=== PATIENT | male | born 1950 | race Caucasian/White ===

== ENCOUNTER 2017-08-26 13:53 | Inpatient (IN) | payer OTHER ==
[2017-08-26 14:43] LABS: Absolute Lymphocytes (CBC) 2.2 K/uL (0.7-4.9); Absolute Monocytes 0.7 K/uL (0.1-1.3); Absolute Neutrophil 4.9 K/uL (1.8-8.0); Basophils % 0.5 % (0-1.3); Eosinophils % 1.9 % (0-4.4); Hematocrit 41.8 % (39.6-49.0); Lymphocytes % 27.9 % (15.3-44.8); MCH 30.5 pg (27.0-35.0); MCV 90.4 fL (80-100); MPV 7.7 fL (7.6-11.3); Monocytes % 8.6 % (3.3-12.3); RBC Red Blood Cell Count 4.63 M/uL (4.33-5.43)
[2017-08-26 14:57] LABS: Potassium 4.7 mEq/L (3.6-5.0)
[2017-08-26 15:00] LABS: Albumin 4.8 g/dL (3.2-5.5); Protein, Total 7.6 g/dL (6.0-8.3)
[2017-08-26 15:05] LABS: CKMB Creatine Kinase MB 3.8 ng/ml (0.3-4.0)
[2017-08-26 15:34] LABS: Thyroid Stimulating Hormone 2.08 uIU/mL (0.34-5.60)
--- NOTE | 2017-08-26 15:57 | ECHO ---
HEIGHT: ft in WEIGHT: lb oz DATE OF STUDY: 08/25/[address]: 2-DIMENSIONAL: YES M.MODE: YES DOPPLER: YES COLOR FLOW: YES TDS: NO PORTABLE: NO DEFINITY: NO BUBBLE STUDY: NO DIAGNOSIS: CHEST PAIN CARDIAC HISTORY: CATHERIZATION: YES SURGERY: NO PROSTHETIC VALVE: NO PACEMAKER: NO MEASUREMENTS (cm) DIASTOLIC (NORMALS) SYSTOLIC (NORMALS) IVSd 1.0 (0.6-1.2) LA Diam 3.2 (1.9-4.0) LVEF 65% LVIDd 3.6 (3.5-5.7) LVIDs 2.3 (2.0-3.5) %FS 35% LVPWd 1.2 (0.6-1.2) Ao Diam 2.9 (2.0-3.7) 2 DIMENSIONAL ASSESSMENT: RIGHT ATRIUM: NORMAL LEFT ATRIUM: NORMAL RIGHT VENTRICLE: NORMAL LEFT VENTRICLE: NORMAL TRICUSPID VALVE: NORMAL MITRAL VALVE: NORMAL PULMONIC VALVE: NORMAL AORTIC VALVE: NORMAL PERICARDIAL EFFUSION: NONE AORTIC ROOT: NORMAL LEFT VENTRICULAR WALL MOTION: NORMAL. DOPPLER/COLOR FLOW: TRACE MITRAL REGURGITATION. COMMENTS: NORMAL 2D ECHOCARDIOGRAM. TRACE MITRAL REGURGITATION TECHNOLOGIST: RADHA BENSON
[2017-08-26 16:08] VITALS: BMI 26.6
[2017-08-26 17:43] LABS: Urine Appearance CLEAR; Urine Bilirubin NEGATIVE (NEG); Urine Blood NEGATIVE (NEG); Urine Color YELLOW; Urine Glucose NEGATIVE (NEG); Urine Protein NEGATIVE (NEG); Urine Specific Gravity 1.025 (1.005-1.030); Urine Urobilinogen 0.2 mg/dL (0.2-1.0); Urine pH 5.5 (5.0-7.0)
[2017-08-26 18:04] LABS: Urine Bacteria <20 /HPF (NONE SEEN); Urine Culture Reflex Order NOT NEEDED; Urine RBC NONE SEEN /HPF (NONE SEEN)
--- NOTE | 2017-08-26 18:42 | RAD REPORT ---
EXAM DESCRIPTION: RAD - Chest Pa And Lat (2 Views) - 08/26/2017 5:45 pm CLINICAL HISTORY: Chest pain COMPARISON: November 2009 TECHNIQUE: PA and lateral views of the chest were obtained. FINDINGS: The lungs are clear. Heart size is normal and central vasculature is within normal limit s. No pleural effusion or pneumothorax seen. No acute bony finding noted. No aortic abnormality. IMPRESSION: No acute cardiopulmonary process. No significant change from comparison.
[2017-08-27] MEDS ORDERED: REGADENOSON 0.4 MG/5 ML SYR IV ONE (07:32)
--- NOTE | 2017-08-27 07:49 | HP ---
Date of Admission: 08/26/2017 Chief Complaint: Chest pain. History Of Present Illness: This is a 66-year-old male patient who was in his normal usual state of health until last 4 days or so. He started to have this vague symptom of describing as dull ache type of feeling in the center of his chest and also some feeling of either something in the throat with this chest discomfort, but not exactly able to describe it. No typical symptom of acid reflux, no trouble swallowing. No relieving factor, but the patient reported that when he plays golf or walks too fast, this chest discomfort that he has tends to get worse. No associated sweating, nausea, vomiting. No fever. No expectoration. After he was evaluated at the office, decision was made to admit him to the hospital with this problem of chest pain. Allergies: TO HYDROCODONE. Medications: Aspirin 81 mg p.o. daily, simvastatin 10 mg daily, losartan 50 mg p.o. daily, amlodipine 5 mg p.o. twice a day. Review of Systems: Cardiovascular: As mentioned above. All other systems reviewed and negative. Social History: Negative for smoking and alcohol use. Family History: Significant for father had coronary artery disease at age 48. Sister with breast cancer. Another sister with cancer of tongue. Past Surgical History: Significant for removal of basal cell carcinoma, cataract surgery, tonsillectomy, hernia repair. Past Medical History: Significant for hypertension, hyperlipidemia, benign prostatic hypertrophy, impaired fasting glucose. Physical Examination: Vital Signs: When the patient came to office, height 67 inches, weight 177 pounds, blood pressure 120/77, pulse 65, respiratory rate 15, temperature 98.4. General: Awake, alert, oriented, not in distress. HEENT: Head atraumatic, normocephalic. Conjunctivae nonerythematous. Sclerae white. Mouth, no thrush or edema noted. Ears/Nose, no mass, lesion, discharge noted. Neck: Supple. No JVD, lymph nodes, bruit, thyromegaly noted. Lungs: Bilateral good equal air entry. Clear to auscultation. No rhonchi. No rales. Heart: Normal heart sounds, no murmur or gallop. Abdomen: Soft, bowel sounds normal. No guarding, rigidity, tenderness, mass, hepatosplenomegaly, distention, or bruit noted. Extremities: No leg edema. No calf tenderness. Skin: No rash, ulcer, cellulitis. Lymphatics: No lymph node enlargement in neck, supraclavicular, infraclavicular region. Neuro: No focal neurological deficit. Chest: Unremarkable. External Genitalia: Deferred. Rectal: Deferred. Laboratory Data: EKG: Normal sinus rhythm, no acute ST-T wave changes. White count 8, hemoglobin 14.1, platelets 270. Sodium 141, potassium 4.7, chloride 107, bicarb 27, BUN 17, creatinine 1, glucose 96. Liver function tests unremarkable. Troponin less than 0.03. TSH 2.08. Urinalysis negative. Chest x-ray: No acute cardiopulmonary changes noted. Echocardiogram showed ejection fraction 65%, trace mitral regurgitation, otherwise this was a normal echocardiogram. Impression: 1. Chest pain. 2. Hypertension. 3. Hyperlipidemia. 4. Impaired fasting glucose. 5. Benign prostatic hypertrophy. Plan: Admit the patient to hospital to telemetry. The patient is appropriate for observation. We will consult Cardiology. We will repeat cardiac enzymes per order. Continue home medications per order and we will do a Lexiscan stress test tomorrow morning, and once that test comes back negative, then our plan is to discharge him to go home. Details and plan of treatment discussed with the patient. GWEN Voice ID: [id number] MTDD
--- NOTE | 2017-08-27 08:23 | EKG ---
Test Date: 2017-08-27 Test Time: 06:31:59 Hospital Supervisor: RT Davenport MEASUREMENT RESULTS: Intervals: Rate: 60 AK: 200 QRSD: 92 QT: 420 QTc: 420 [place]: P: 60 AK: 200 QRS: 66 T: 51 INTERPRETIVE STATEMENTS: Normal sinus rhythm Normal ECG Compared to ECG 11/28/2009 07:42:32 Early repolarization no longer present Electronically Signed On 08-27-17 08:23:25 CDT by Fuentes Eid
[2017-08-27] MEDS: Losartan Potassium 50 MG TABLET PO SCH (09:00)
--- NOTE | 2017-08-27 10:26 | RAD REPORT ---
EXAM DESCRIPTION: NM - Rest Stress Cardiac Imaging - 08/27/2017 10:18 am CLINICAL HISTORY: Chest pain COMPARISON: None. TECHNIQUE: The patient was administered approximately 10 mCi of Tc 99m Sestamibi prior to resting SP ECT imaging of the heart. The patient was then administered approximately 30 mCi of Tc 99m Sestamibi following exercise or pharmacologic stress. Multiplanar SPECT images were reviewed. FINDINGS: The end diastolic volume is 97 ml, the end systolic volume is 40 ml, and the ejection frac tion is 59 %. Small focus of decreased activity is seen in the anteroseptal wall mid and apex portion on stress seq uencing. This is absent or less prominent than on rest imaging. No other area of scarring or stress ischemia identifiable. IMPRESSION: Suspected small focus of stress ischemia anteroseptal wall. Ventricular volume and ejection fraction are normal range.
--- NOTE | 2017-08-27 13:05 | TREADPHA ---
DX: CHEST PAIN Date of Study: 08/27/17 Ht: 5 7 Wt: 170 lb 0 oz Consulting Physician: VÍCTOR MEDICATIONS: AMLODIPINE, LOSARTAN, SIMVISTATIN, ASPRIRIN, CIALIS HISTORY: 66 YEAR OLD MALE WITH COMPLAINTS OF CHEST PAIN. HISTORY OF HYPERTENSION, HIGH CHOLESTEROL PHYSICIAL EXAMINATION: RESTING B.P.: 137/76 RESTING H.R.: 68 RESTING EKG: NORMAL PROTOCOL: 3:30 EXERCISE TIME: 3:30 B.P. AT PEAK STRESS: 136/75 IMPRESSION: LEXISCAN INJECTED, CARDIOLITE INJECTED PER PROTOCOL, SEE NUCLEAR MEDICINE REPORT. NO CHEST PAIN. OCCASIONAL PREMATURE VENTRICULAR COMPLEXES NOTED THROUGHOUT THE TEST. NO VENTRICULAR TACHYCARDIA, NO SUPRA VENTRICULAR TACHYCARDIA. NON DIAGNOSTIC EKG WITH LEXISCAN STRESS.
--- NOTE | 2017-08-28 02:11 | CON ---
Date of Consultation: 08/27/[address] Mccrary's service on 08/26/2017. I saw the patient on 08/27/2017. Reason For Consultation: Chest pain. History Of Present Illness: Mr. Kaiser is a 66-year-old white male who has a history of hypertension and dyslipidemia. He takes medications for both of these conditions. No cardiac history. He came i n with chest pain while he was playing golf, that was persistent for a few hours, but gets worse when he exerts himself. No nausea, vomiting, diaphoresis, PND, orthopnea, pedal edema, palpitations, or syncope. He had a negative chest x-ray, EKG, troponin, and BNP. Echocardiogram and Lexiscan were pe nding. Past Medical History: Negative. Allergies: NONE. Review of Systems: Negative. Social History: Negative for tobacco. Family History: Positive for heart disease in his dad. Physical Examination: Vital Signs: Stable. He is afebrile. HEENT: Negative. Neck: Supple without any bruit, lymphadenopathy, JVD, or thyromegaly. Chest: Clear to auscultation and percussion. Cardiac: Revealed a regular rhythm and rate, without any murmurs, gallops, or rubs. Abdomen: Benign. Extremities: Revealed no clubbing, cyanosis, or edema. Diagnostic Data: Unremarkable. Impression And Plan: The patient who is 66, has hypertension and dyslipidemia. He is on simvastatin , losartan, amlodipine, and aspirin. Blood pressure is well controlled. We will see what the echoca rdiogram and Cardiolite show, but his symptoms are suspicious for acute coronary syndrome. The case was discussed with Dr. Mccrary. I will make a decision after the stress test and echocardiogram are nadeem BLAIR/EVIE Voice ID: [id number] Report ID: [id number]
--- NOTE | 2017-08-28 02:17 | PN ---
Date of Progress Note: 08/27/2017 Subjective: The patient was seen this morning for followup. Denied any complaints overnight. Vital signs reviewed. Objective: HEENT: Unremarkable. Lungs: Clear to auscultation. Heart: Sounds normal. Abdomen: Soft. Bowel sounds normal. No guarding, rigidity, tenderness, or distention. Extremities: No leg edema. Laboratory Data: The patient's stress test today shows reversible perfusion defect in anteroseptal p art. Impression: 1.Chest pain. 2.Abnormal stress test. 3.Hypertension. 4.Hyperlipidemia. Plan: Stress test result was available. [employer] recommended cardiac cath and initially the pat ient was reluctant to get this procedure done at our hospital, and later on he was agreeable to do so . Dr. Eid has seen him, explained him details, and I have discussed details with Dr. Eid as well. This evening, I went back to hospital to talk to the patient per his request and we talked abo ut different possible scenario that we can identify tomorrow with a cardiac cath. One is that stress test could be false positive and he does not have any coronary artery disease, other option is that he may have some coronary artery disease and just a medical management would be necessary, third opti on is need for angioplasty and stent placement, and last option is need for bypass surgery, and in th at event, we will be able to arrange for him to go to [place]. All those details were discussed with him. He understands and agrees to proceed with cardiac cath locally at our hospital. He feels very comfortable with Dr. Eid after he talked to him as well. I will see him tomorrow morning for followup. We will go ahead and get a fasting lipid profile done on him. He is asymptomatic otherwise today. AMELIA/MODL Voice ID: [id number] Report ID: [id number]
[2017-08-28] MEDS ORDERED: NA CHLORIDE 0.9% 1,000 ML ONE (05:47)
[2017-08-28] MEDS: Losartan Potassium 50 MG TABLET PO SCH (06:00)
[2017-08-28] MEDS ORDERED: MIDAZOLAM HCL 2 MG/2 ML INJ ONE ×2 (09:05→09:09)
[2017-08-28] MEDS ORDERED: FENTANYL CITR 100 MCG/2 ML ONE (09:05)
[2017-08-28] MEDS ORDERED: NA CHLORIDE 0.9% 0 ML ONE (09:09)
[2017-08-28] MEDS ORDERED: LIDOCAINE 1% 20 ML MDV ONE (09:09)
[2017-08-28] MEDS ORDERED: ATROPINE SULF 1 MG/10 ML SYR IV ONE (09:09)
[2017-08-28] MEDS ORDERED: ONDANSETRON 4 MG/2 ML VIAL ONE (09:26)
[2017-08-28 10:28] VITALS: O2SAT 100
[2017-08-28] MEDS ORDERED: NITROGLYCERIN 0.4 MG/TAB SL PRN (12:00)
[2017-08-28] MEDS ORDERED: ACETAMINOPHEN 325 MG TABLET PO PRN (12:00)
[2017-08-28] MEDS ORDERED: NA CHLORIDE 0.9% 1,000 ML IV SCH (12:00)
[2017-08-28] MEDS ORDERED: HEPARIN 1000 UNIT/500 ML IV ONE (13:14)
[2017-08-28 13:24] VITALS: BP 145/69; TEMP 98.2
--- NOTE | 2017-08-29 00:24 | DS ---
Date of Discharge: 08/28/[address]: [facility] via ground ambulance. Physical Examination: HEENT: Unremarkable. Lungs: Clear to auscultation. Heart: Sounds normal. Abdomen: Soft. Bowel sounds normal. No guarding, rigidity, tenderness, or distention. Extremities: No leg edema. Hospital Course: A 66-year-old male patient came into office with complaints of some vague chest marlen n. Please see dictated H and P for more information. The patient came into office with some unusual sensation describing as dull ache type of feeling in the center of his chest area. The patient repo rted that the symptoms gets worse if he is playing golf or tries to walk fast. EKG was done at offic e which was normal and with his symptoms I was concerned about possibility of coronary artery disease . The patient was sent to the hospital for further evaluation and management. After the patient was admitted to the hospital, his home medications were continued. Cardiology consultation was obtained . [place] was ruled out by getting serial cardiac enzymes. His repeat EKG in the hospital was normal as well. Echocardiogram came back unremarkable. His chest x-ray was unremarkable. The patient had a s tress test done yesterday which showed abnormality with anteroseptal ischemic changes and cardiac cat h was recommended and the patient had a cardiac cath done today with Dr. Eid and after the cath, Dr. Eid contacted me and informed me that the patient had significant coronary artery disease and he has recommended coronary artery bypass surgery, and he already has initiated transfer process to [place] and he has already communicated with Dr. Goldberg and once that is completed, the patient was transferred in stable condition. His blood work chemistry was unremarkable. TSH normal at 2.08. His LDL was 75, HDL 44, total cholesterol 133, triglyceride 71. CBC was unremarkable. Troponin le ss than 0.03 x2. Final Diagnoses: 1.Angina. 2.Coronary artery disease. 3.Hypertension. 4.Hyperlipidemia. 5.Impaired fasting glucose. 6.Benign prostatic hypertrophy. AMELIA/MODL Voice ID: [id number] Report ID: [id number]
--- NOTE | 2017-08-29 22:07 | OP ---
Surgeon: Fuentes Eid MD Procedure: Left heart catheterization, selective coronary arteriogram. Indication: Chest pain and positive Cardiolite. Procedure In Detail: The patient was brought to the [facility] as an inpatient. He was prepped and dr chente in the routine sterile fashion. Given 4 mg of Versed for IV sedation. A 6-Libyan sheath introd uced in the common femoral artery on the right. [employer] was used to close the case. Eitan ranjeet ters 6-Libyan left and right were used to do the angiography. He had a nondominant small free of disease. His left main had a 70% stenosis. He had a 90% LAD stenosis before the first diago nal. Large diagonal had a 90% OM lesion. Complications: There were no complications. Blood: Loss 5 cc. Conscious Sedation: 30 minutes. Final Diagnosis: Severe coronary artery disease. Plan: To send him to the [facility] for coronary artery bypass surgery. Case was discussed with the family. JOHNNIE/VEIE Voice ID: [id number] Report ID: [id number]
== END 2017-08-28 16:51 | disposition short-term general hospital (02) | DRG 287 ==
LOC: 4TH 14:03 → OBSVTOIN 08-27 14:27
PROVIDERS: ADMIT Internal Medicine; ATTEND Internal Medicine
PROC: 4A023N7 Measurement of Cardiac Sampling and Pressure, Left Heart, Percutaneous Approach (ICD-10-PCS; principal; 2017-08-28)
PROC: B201YZZ Plain Radiography of Multiple Coronary Arteries using Other Contrast (ICD-10-PCS; 2017-08-28)
PROC: B205YZZ Plain Radiography of Left Heart using Other Contrast (ICD-10-PCS; 2017-08-28)
DX: I25.119 Atherosclerotic heart disease of native coronary artery with unspecified angina pectoris (principal); I10 Essential (primary) hypertension; E78.5 Hyperlipidemia, unspecified; R73.02 Impaired glucose tolerance (oral); N40.0 Benign prostatic hyperplasia without lower urinary tract symptoms
CPT/HCPCS: 36415; 71046; 78452; 80053; 80061; 81001; 82550; 82553; 83735; 84443; 84484; 85025; 93005; 93017; 93306; 93458; A9500; C1893; G0378; J0583; J2250; J2405; J2785; J3010; J7030

== ENCOUNTER 2020-10-17 08:08 | Emergency (ER) | payer OTHER ==
--- OUTSIDE RECORDS SUMMARY | 2020-10-17 08:13 | XMS REPORT | Continuity of Care Document ---
:1950 Author Organization [facility] t Address [address] [place] [address] Care Team Providers Name Role Phone DEANNE SANTOS Primary Care Physician Unavailable Castro GALINDO I Attending Clinician Pio Blackman MD Attending Clinician Gume Prince MD Attending Clinician Alex GALINDO Attending Clinician Mane ORELLANA Attending Clinician Unavailable Gala ORELLANA, S Attending Clinician Unavailable Gume Alvarez Attending Clinician Jorge GALINDO Attending Clinician Jordan MAZA Attending Clinician Greg Duran MD Attending Clinician Nato GALINDO Attending Clinician Renetta Hansen MD Attending Clinician Unavailable Neil ORELLANA, Karin Attending Clinician Unavailable Leslie ORELLANA Attending Clinician Unavailable Deanne Santos MD Attending Clinician [phone] Lety ORELLANA, A Attending Clinician Payers Payer Name Policy Type Policy Effective Date Expiration Date Sour ce Number MEDICAREMEDICARE PART [id number] 2015 MD Tian A AND 00:00:00 [id number] 2015- [phone] THO ANDERSENMediselect [facility] AETNA MANAGED [id number] MD Tian CAREAETNA 00:00:00 [id number] 2000 -PresentHMO COVID VACCINE ADMIN / [id number] 2020-05-[address] [facility] TESTINGCOVID VACCINE 00:00:00 - Me dical ADMIN / Center [id number]/06 021-Present Problems Condition Condition Condition Status Onset Resolution Last Treating Co mments Source Name Details Category Date Date Treatment Clinician Date Malignant Malignant Disease Active Overview: melanoma melanoma 5-05 Formattin And erso of left of left 00:00: g of this n upper limb upper limb 00 note including including might be shoulder shoulder different from the original. Added automatic ally from request for surgery [id number] Cancer of Cancer of Disease Active 2018-04 Overview: left male left male 2-16 Formattin A nderso breast breast 00:00: g of this n 00 note might be different from the original. Mandatory CMS ICD-10 2020 UPDATE [place] Disease Active 2018-04 left left 2-04 Anderso breast breast 00:00: n 00 Renal Renal Disease Active [place] insufficie insufficie 5-15 Me thodi ncy, mild ncy, mild 00:00: st 00 S/P CABG x S/P CABG x Disease Active [place] 2 2 5-15 Methodi 00:00: st 00 Nausea Nausea Disease Active [place] 5-15 Methodi 00:00: st 00 Postoperat Postoperat Disease Active [place] afsaneh anemia afsaneh anemia 5-15 Me thodi due to due to 00:00: st acute acute 00 blood loss blood loss Essential Essential Disease Active [facility]izabeth ston hypertensi hypertensi 5-15 Me thodi on on 00:00: st 00 Coronary Coronary Disease Active [place] artery artery 5-14 Methodi disease of disease of 00:00: st bypass bypass 00 graft of graft of qagan tayagungin qagan tayagungin heart 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 Allergies, Adverse Reactions, Alerts Allergy Allergy Status Severity Reaction(s) Onset Inactive Treating Comm ents Source Name Type Date Date Clinician Fentanyl Propensi Active Other (See Nausea, [place] ty to Comments) 5-15 GI Methodi adverse 00:00: intoleran st reaction 00 ce s to drug Tramadol Propensi Active GI nausea [place] ty to Intolerance 15 Metho di adverse 00:00: st reaction 00 s to drug Hydrocod Propensi Active Diarrhea, GI [place] one ty to Intolerance 5-11 Metho di adverse 00:00: st reaction 00 s to drug Morphine Propensi Active Diarrhea, GI Pt stat es [place] ty to Intolerance 5-11 he cannot Me thodi adverse 00:00: tolerate st reaction 00 narcotics s to and has drug severe GI upset for >24 hours Family History Family Member Diagnosis Comments Start Date Stop Date Source Natural brother Melanoma MD Yaoers on Natural sister Breast cancer MD Juan godinez Natural sister Tongue cancer MD Juan godinez Social History Social Habit Start Date Stop Date Quantity Comments Source Exposure to Not sure MD Tian SARS-CoV-2 (event) Tobacco use and 2017-09-02 2017-09-02 Never used [facility] ethodist exposure 00:00:00 00:00:00 Alcohol intake 2017-09-02 2017-09-02 Current [facility] thodist 00:00:00 00:00:00 non-drinker of alcohol (finding) Sex [birth year] [facility] ethodist 00:00:00 00:00:00 Smoking Status Start Date Stop Date Source Never smoker [facility] Medications Ordered Filled Start Stop Current Ordering Indication Dosage Frequency Signature Comments Components Source Medication Medication Date Date Medication? Clinician (SIG) Name Name vit A/vit Yes Take by C/vit 3-16 mouth Anderso E/zinc/lynette 16:21: daily. n er 59 (PRESERVISI ON AREDS ORAL) tamoxifen Yes Infiltratin 20mg Take 1 MD (NOLVADEX) 1-30 g duct tablet (20 A nderso 20 mg 00:00: carcinoma mg) by n tablet 00 of axillary mouth tail of daily. left male breast sulfamethox Yes Infection 1{tbl} Take 1 MD azole-trime 5-25 following a tablet by Anderso thoprim 00:00: procedure, mouth n (Bactrim 00 other twice DS) 800 surgical daily. mg-160 mg site, per tablet initial encounter tamoxifen No Infiltratin 20mg Take 1 MD (NOLVADEX) 2-25 01-30 g duct tablet (20 Anderso 20 mg 00:00: 00:00 carcinoma mg) by n tablet 00 :00 of axillary mouth tail of daily. left male breast amLODIPine Yes MD (NORVASC) 5 7-15 Anderso mg tablet 00:00: n 00 tadalafil Yes MD (CIALIS) 20 3-15 Anderso mg tablet 00:00: n 00 simvastatin Yes 10mg QD Take 10 mg [place] (ZOCOR) 10 5-18 by mouth Metho di MG tablet 09:26: nightly. st 29 aspirin Yes 81mg QD Take 81 mg [place] (ECOTRIN) 5-18 by mouth Method i 81 MG 09:26: daily. st enteric 29 coated tablet aspirin 81 Yes 81mg Take 81 mg M D mg EC 5-15 by mouth. Anderso tablet 00:00: n 00 metoprolol Yes MD succinate 5-15 Anderso (TOPROL XL) 00:00: n 25 mg 24 hr 00 tablet simvastatin Yes MD (ZOCOR) 20 5-15 Anderso mg tablet 00:00: n 00 Immunizations Ordered Immunization Filled Immunization Date Status Commen ts Source Name Name Covid-19 Vaccine 2020-05-[address] [facility]Pf) 00:00:00 [facility] ([place]) Covid-19 Vaccine 2020-05-[address] [facility] (Pf) 00:00:00 [facility] ([place]) Vital Signs Vital Name Observation Time Observation Value Comments Source Systolic blood pressure 2020-09-18 16:27:41 118 mm[Hg] MD Tian Diastolic blood pressure 2020-09-18 16:27:41 76 mm[Hg] MD Tian Heart rate 2020-09-18 16:27:41 67 /min MD Dannie son Body temperature 2020-09-18 16:27:41 36.78 Louise MD Edwige tomlinson Respiratory rate 2020-09-18 16:27:41 18 /min MD Edwige tomlinson Oxygen saturation in 2020-07-03 21:11:10 99 /min MD Tian Arterial blood by Pulse oximetry Body weight 2020-06-15 14:25:22 80.8 kg MD Dannie sanchez BMI 2020-06-15 14:25:22 27.47 kg/m2 MD Dannie sanchez Procedures Procedure Date / Time Performed Performing Clinician [facility] e PATHOLOGY OUTSIDE 2020-06-15 00:00:00 Kristin Prince MD INTERPRETATION XR CHEST 2 VW 2020-03-20 17:19:52 Morro Donovan MD COMPREHENSIVE METABOLIC PANEL 2019-11-29 14:15:00 Josselin Patel MD GLUCOSE LEVEL 2019-11-29 14:15:00 Josselin Patel MD ELECTROLYTE PANEL 2019-11-29 14:15:00 Josselin Patel MD SERUM CREATININE 2019-11-29 14:15:00 Josselin Patel MD .GLOMERULAR FILTRATION RATE 2019-11-29 14:15:00 Josselin Patel MD CALCIUM LEVEL TOTAL 2019-11-29 14:15:00 Josselin Patel MD ALBUMIN LEVEL 2019-11-29 14:15:00 Josselin Patel MD ALKALINE PHOSPHATASE 2019-11-29 14:15:00 Josselin Patel MD ALANINE AMINOTRANSFERASE 2019-11-29 14:15:00 Josselin Patel MD ASPARTATE AMINOTRANSFERASE 2019-11-29 14:15:00 Josselin Patel TOTAL PROTEIN 2019-11-29 14:15:00 Josselin Patel MD FRACTIONATED BILIRUBIN 2019-11-29 14:15:00 Josselin Patel MD BLOOD UREA NITROGEN 2019-11-29 14:15:00 Josselin Patel MD Plan of Care Planned Activity Planned Date Details Comments Source Future Scheduled 2020-12-[address] [facility] - Test 00:00:00 (Season Ended) [code = [facility] INFLUENZA VACCINE (Season Ended)] Future Scheduled 2020-11-18 INFLUENZA VACCINE [place] [facility] 00:00:00 [code = INFLUENZA VACCINE] Future Scheduled 2020-04-[address] [facility] - Test 00:00:00 (12+) [code = Medical Center DEPRESSION SCREENING (12+)] Future Scheduled 2015-09-02 PNEUMOCOCCAL 65+ YRS [facility] - Test 00:00:00 (1 of 1 - Medical Center [id number] PCV13) [code = PNEUMOCOCCAL 65+ YRS (1 of 1 - [id number] PCV13)] Future Scheduled 2015-09-02 65+ PNEUMOCOCCAL [place] [facility] Test 00:00:00 VACCINE (1 of 1 - PPSV23) [code = 65+ PNEUMOCOCCAL VACCINE (1 of 1 - PPSV23)] Future Scheduled 2000 SHINGLES VACCINES ([address] [facility] - Test 00:00:00 of 2) [code = SHINGLES Medic al Center VACCINES (1 of 2)] Future Scheduled 2000 COLONOSCOPY SCREENING [place] [facility] Test 00:00:00 [code = COLONOSCOPY SCREENING] Future Scheduled 2000 SHINGLES VACCINES (#1) [place] [facility] Test 00:00:00 [code = SHINGLES VACCINES (#1)] Future Scheduled 1969 DTAP/TDAP/TD [facility]ACCINES [facility] Test 00:00:00 (1 - Tdap) [code = Medical C enter DTAP/TDAP/TD VACCINES (1 - Tdap)] Future Scheduled 1968 HEPATITIS C SCREENING [facility] Test 00:00:00 [code = HEPATITIS C Medical Center SCREENING] Future Scheduled 1962 COVID-19 VACCINE (1) [place] [facility] Test 00:00:00 [code = COVID-19 VACCINE (1)] Future Scheduled [address] [facility] Test 00:00:00 malignant neoplasm of [facility] colon (procedure) [code = 646526060] Encounters Start End Encounter Admission Attending Care Care Encounter Source Date/Time Date/Time Type Type Clinicians Facility Department ID 2019-06-29 Outpatient [facility] MARGOT [id number] [facility] 16:35:47 2019-05-14 2019-05-14 Emergency E [facility] FB [id number] [facility] 09:11:00 09:11:00 2019-05-12 2019-05-12 Outpatient [facility] MARGOT [id number] [facility] 08:17:00 08:17:00 2019-04-21 2019-04-21 Outpatient [facility] MARGOT [id number] [facility] 08:38:00 08:38:00 Results Test Description Test Time Test Comments Results Result Comments Source Pathology Outside Interpretation 2020-07-06 21:52:00 Test Item Value Reference Range Interpretation Comme nts Materials h7mypIZbTREejRMcYyVvXYWmODFbq3iuVMBvjNMwUwQrArSyOyJsNjpibVGqOSInAyMpt9mhp267tZYm m6bqJLThLrP2aIHtKJMrjRXwF626LREoVVhtr4nop8AkNFSnaHSxp5X2ODBXpgpxbWf2eOjiZ34xz0M9 AivsI0fzIFRlNQRoZ7HoXU8jSACeYvp5TMJ6MEB2ATS Received qRNGmT7FaJF1eXFChcQBmYCb8u2qaeGujZTOvBNH3y3ygJClgbcKeWA3bwy6ulMh7b9bvcyTqHHYnVOF nkINFTJSeE2OpzNqrIx1hrQz4aYppNbpsQAF0Hsh1WA1fan84mxt5jEnkJZIfmlkpTnJ2CIdfSYIskdp fSBc4MVsfVQHluGpgDFhzTCFlkrfmGXvrGBBprNY1VP (test code RcbWJzY5QeOAMxRCzpDYRuery3AvEpTj1kuEJsqRqeQNvun7lhw0ajqDQvUki1TJFoYnDyPdnjFWusd5 Ars7fcFTJxzj6tNPF3oTEqfGiwg4N3sQNsGEByzVEecuJvCYCrvp47lKMjjOTtePEejt2thlAvvDAugV LxSMX4sYVatqPiDMOrrWGkTXAcXN1dbGJwWSOkuC7wd = 9973) dtwQMUmJwZpmfanFTQrfNpipvBtFu4mcHgeORL6ZYcnW4wfcI6aNiO4QNrsE4kmuD1lLXx0ZDerqEO4Q XYxwE3kSZ1lyqgfs7tiXzOtSK8rapejn2cmEuPdBV8puhx1p6rkVRF7BMjyRLMiTpR1ndP5QJYvoLQsF VHbmBvwMEdiu477HDU7LjUaVMYpo5OkY0NujPrzI78d iYnsK03vWXDafUxiuP6gtCciuP8nFnWjJtJjMIy8mf01UFj2iarvdVliBXa7ivZgJPGwVIY4XWEtmGAt LABvV6x5jjMySXVqIRV2CTMzwIWcKRKcV9c9ziGcYKH6CRh1bbPtWPUljWKufGSlAKPaGxCplAZrLZCo HlRxYNVglNWdxPJiwFXgdU7kdFbzWXOrpELjvP8lGSE 3OBJcflckCsFsvQRnGAUhzPSabd04CTBczjOgxRCwiMiouKYvRXR3CQMuWFVoAHBvNJW1UXNeAtTkbzX zSHovtTDyQAHyRTLhSAJbBPCdKXF7QLRzFmXozrGrPOunuJUeNITwIVXmJVDbARKxLAO5CXXuNjAnmnD nARewqRHlSMFkGLSeENGkHKHzRYI3HXSjVqEecdNvLO ywdNBiHEQzHGrupVJeUBU4L5xllCShOXGuJAscdKNpYTEdV0jcvIOqXIgxGKJntMVsApbgRYEftTPoXm FjT7ohTXGhYeNiF1YknHc3AWNuSTNmoaJdsIYxbIhujCJiVPX4JAEjIMFfJVMvXFE3MGKcQbLpdmXaNR whoNUxPYIsEMJnTVEcNJPsGWO8PIVhCdTkpaOnXJtbu LMtANQnOGUkVWEvJVXrDWY1DAXyFpRgqoKvQVbdtLAtLILoEKAdMQHwRWNiPBJ9RFMaNiRcfzSkYGvbp UOoXGTfHZywfGVgLWE0L6xkcQShXZYiRErsyMEfZHIjR0btaHWeDKerGMYxbHGbJtpjQUWkoDBoBpXdB 7lhKYDmTiWgI3WyxDj2TlZxGGLssjAktEQzgYdsdHWp YAJ4FUUzVIUnBXBxHRD6NSAgJrSlanWgAUrdiAWjQQOoMLQkTKLfOMLqMKG2MBFvBuMudrFmFQomcDCf HMUpEOQwSLDhCGRqHDF8KXBqYiYjhjBaXOwyjIWyFGZqZNUuEYCpVOIpEUE7PBAcAyElasYvRAdlcVIs EFAsPNbtwQGkJGF5O1vmgYEvBBRbSSoslANrYYXaQ1w kfPMdDAamCIRyiUVqWobpYUThuOYfSeEdV8dtAKPxGqIlG4WxtLx8BvLvSMGdjrHueW64Mwbpw7UuCTS zMCF7IOcpLYayqDphrMZuaybyQVtihsGdPZxhysnnDWCmDSqzZ1psYmWwDEAgqJeiLMdwb3KmJGHoEWJ jEglpyaUeCUKgOQHiYOQtnZ8sTmikG9ElhT4lDQxbFu vlJ4lnHAWpj2PdxD3jFXlqlXTpgsmdTPjsctGaCMvfwzmjFTDuRYxjB0geOoKbAXAewZhaEJsax0FvIL DsFDYnJbxuazPsWSq7fwNsESFbvNidkOJkYFvuunDebHzxz1FslfBpjYbmKQRsXAd4xcQgtnvqpJf5uP PoyDsgLORabHoleB3gEaWlFqCyYKtvySTlrmswREdae aZmIDzzijboWHXfDEetF8ixLlSgCFHzjSahFOlbx0MvHIBhORIsRlewigVqIPIaQ66krCVjbOQpGGBqM UhlDMLrOAOzLlGjaCArZdVwEjYehZdghVogMIomQeSmFKRhMUywK1wxPjIaW6AgKCXuStGazBNxD9tgR 8CyjHrgRWRkCFadvBMlHMJspJRkHWC1oTGveuXzhWWt qSByOFHoUWxoUAW0aOVeqjdumBMflfvxDZrfizE2XHVgBYflTFAjBVUjDwWniXSoHrGqUjEdmEztoBkg OJkbLoKlRCZyTSkbO0ykZlWbL1MnROFbWcUxIdPPHQUduQLzFPhqhLSzlnosXSrpwcCwPWchlgopDBUg UHsyD7toTbHcZDTmiWooEKdpx5PyYHGfJABiStqwywE aUMd6kuFkOXRvaIiauY09Ihtsdj43ERWyf6bnOPVuF6LxrPVoOFCvrFJeZYanIVllxDVfGMNxKxorSMR wfTSyFVPcADlswGZwKTUwJsXzNYUvlZRsWCXbVSHohHOwTUQ6R6p9lvYdTGUvCRe6pxMqWYWpLyJrtKU zRKQ6MWq7OwhuxnF2wWQpC7y3HlnkqpWnGMjeuKBceh 66ADFzglUozOOydQsjeTJnQVB1LOHpFVUqOWDzCBR5VWQpZhVyknFuLHassWLqISIwRDTeJKQjZTMeQT Q1TYTjMjXhnrPkAYusaRUtBSLgRCXaLNHxVGKkSYA2HOLsOzUaciGzIQwzjGHnUPNuVCHvUMDqMQSbJH K8ZAIcGoUfnpReNNqyxNQtMANvYYaquNRmWAS4O9gjq APgLONpPCernTQyVNOaF9jtnYUdOOubBZXdtGXlRqnoPELayEYbKdRmG9cfIULwCkAbG7ShwBt0VMMyM FAxbcVaoOLmqHrnbFQnKSB2FGRqUAXcZXRrLDY1RCLqHxVouaVkDBssdTWxPSEkSEPtNBHtTZPvTTQ4L PCkLlKeaeFiJSjymIHsCXBwPNGgXFPxLAKaFPD1LQEa KcJykbVpCPwzhNUlNPZrJPVkYUPbDQSbOXL1KAGlPeBdnkAuGKouvYJeLTTfRSdxsLLnMZY1E5eptPMe KMKeEDfonOVzJSNyB0iceWRwPAbaGEOvoOUbXxbeXZCzbEPwYmKeT1lhLAQlYoNiZ5EnfGq7NbOlGRIx tiYduFHhwYhvyRDtEPA4ZZKaXXWvMNFzVDK7PXGxObQ tfoQdEXuajPKqRVUaAVEgCJXgCNQiKIE9XWQyGjChfgJbYJmsoBZhZKAkSFRfBCHsLFWqXUH0SRMwJrB xtfEnKDpyvKDtQQBlHRAgQHLjEXAoDJQ0SASvJuFyesMrOWmjyFQvYDSwPWxnxOCgVPZ4H6mycDFjOMM mVLnzjXOkTMHiW4jfzSRqJErnCJKbyMSyKlgqUSJniS XxPhRqB7zxOHWkHjKuD7BivYo4FmZhBWJgkdEzfU43Twbbl1SaJXMhANP6HNmwVLcbmHyjrEDzdabmNM nitoQ3MXNuVEvqOEChUHKcKrDdoDHxRmOzLdLwzMxhvFidCIymUnJpRAZvUBsrT2nmSiEkH0VaXKQzXb OwIQ4hHwJLTfQvFAB5FwJwGODzZ8MkLGYuBgzZQ3iWZ OEoBXARV9lrkSFhaozjPAaqmgLwTZudipkeBHHjBGggB2qcXhTzRJBogMjsFWmfk6QtGIPrWADtOkgih nThHQh9fhFxHBUilNzzmPSaWYspftIlgEdxx6QxnuIftWceHPKyCCVrJGPsRBobMFSnXLJcHiCkwJwnf A0pIoPgBaEfHZbfRH8bTDSpT0heiXDvNXNcCPFrB6sn AbMmtI0rmUzvKXztNyHwKeYgQWQbBeE1EcVjCwUqrVlwdR5xSzNxJkRxSEgsRH8hXYWfC3oomUXxETWp GNMcY2tnMlAmqM2ieRofWJmpAlUmArIjEFkhgUKnwVxePAolKQMviaZweT57Wsvoe4PzUMKwGQH5TZdv RZwgqKzxwQYlrvzbNNzlfyI0YHMuHRlgKOJdTRFuEpS wuSLnBsUeYlPlbBdjoXlnWIqjDmSeLJUbYDgzY3cpQuKyI3TiGYZcTdMdCt1uGY6iCSLgBGAwLKpxKIQ iXRPxGkQxkTNfTbHdNtTspVasqGhzWThaXwUnNKUcLDtgR4ttYaRnD6EpDJJeSlFnnDRgJ7ncC9JonGx akcDfwQvqm2hcoZWhHYtxr7RhdoGzkDpfHNLcYBBwTD KpQJskALJuBKXlZwPgjScmvB6vDiTwGqBdZUjjQS6kBTRoJ0rcbQWiIYXzCTEkI6qfBkVvmR1jlSbfMX xmczIwXHBhcn0= Diagnosis h3ukdNGgZEDfvWA2OaTqONBkv7rez8GtrHXfxPSiCNznwNWyhdDvrp92lFD5jF62QH5kZPAsBjQ5GFHt bhF5Rgv3FWTvECWwlQMuU982g8lxm5kekcVuiDO4tVkySNKfBDDtNSxnFBUtIfQkR0U4o8tkYGDnVMTn zmuvkAMcKdMGMoDiGWS5ObKvXWCzG5SzNZUmFywWK1f (test code BAUEaWYVUKvhsP25ddPYxuMCkTM6eVFAbZhKaJqEcIXp4FKRckufhTPVytCz5OaIjqBhiOqEwQWLasN8 aNJImR6h7IJevv3CnWJH9hJKeMY74nnGvhARbPUDvZQSiKAbygTvxKWbmNWe8YDZrlxbmfRI0PEOwxTg zNWL2GNCCZKYFRGAXUBxEABSQWnYJFv0YQUnbQs8YJE = 34) tROhHHFEMKDUIQSYSWWzNCNS1DSPTSVTEAR6SVJONVCQzVWv6knYIfAPdzQxO9EYtywZ10JnNibBvzXr P6OTdfDPZzaMt2OyVdUiesCVfkircuPEVJf0fuLQLxoDNtccRjAZJduQN8PMVkTXwHQmY9UULmZjynSR HrgOAzPHPhVu8icfbnmGDaz3CoLIRyb8tgEXTnfuSdy WL3QEKvJD2mLHtoRldixYHoWRB0w XNzdWUgZWRnZXMgYXBwZWFyIGZyZWUuXHBhclxwYXJkXHBhcn0= Disclaimer g7tliOImBAXlgMNhCqZoIXGcJELso9yzZILulZJaSgFiFfYuWrFmTctorOTgHXRyKiTpz0vuf847oDRp q5deVLXyTiS9iCZwMTSryEQrJ784MLMyBCmys4aka4BwYZAhwWBzq6E3MSGNfyaghPw7fGueV41dg1P6 DvpcZ2kaVDKmPDSoO2MrMY9eXLQmSfy2TSA5UWR7ZYU (test code gOMFpW2ApLZ6fVASvfOYgVBh2s4szmVlgOIXtVBF5i0ipYFdnzfXvIH5jsq2tdFb6y5peaaUqIAEhECI sjMCAFUJkZ8HeyOuhQz4zwGs3sAfdGegfZJT0Yyw9EF0yzy27jou5bDinCSUlcdboWuY6FVkrTULbevu cOHg0PBnzVSXdlUD5IEFrwITqH8ZuFXDuQC0tvxv0XV = 9844) H6HIocXWYmKrO6IGVydAEeYYXcvByxYNban336ISU4NfJpFY1xI6Ipv2K0vM8wiGWnAFCnkAXmAdHdSB Rygn5bhGFvLQazy5SfHBC8sgI2qPByiDJlYQUdMV65Sdouw4SwJtgsRQV2RXNwkiNiq2Agx1zgQaDsga XrI6quD8EyGJRnIEVpMUPaWqEexlJdk9Zle7AkoDYaw Tv8x2klRTKqHMYwkAepr1tvLQI4BHZyR3U4vQHtw9mnLEwyEDTnoAZ4foB0WTCveDCrA0LmwF0mAEVhA G7wbqh8f3uzYUD7JTdhYVNtMzV3srO4IPSffISgITDtqBujCIumr461SQY3ZwIoTHQoe4ZyU3DfqZrtH 82vnNvpT34nRQEtpHdlcG8wfAugmA4yQfSjTbRgPSxi kSbypNDskescOQhvfqX5FUpdksfzBVClBXcuT5ajRvKaVXVxdZcoDGraj4HfTWCrVCGzMnttahB5ZWUZ e26qCBMci3ArLGSccK8exEBiBGlpnkFnuWI0ENcnzpYcRjEwkrSvUYIzjC5rFHNfCA8rUUXqgbYypv4o nbPtJRXnHOZxZ9ZigrrowYzcqhDrBPNsux7itiQjUWU 2GWDVZE0UUJCdHIDkw75gQTUtgVkiiX5krUSessHzDENtk3TqsC4kaDWFSWByR8jhYB2yVTdng4GzvHV gxZStzFQ0LYPml1RzWfNomrHfwTRjzFDwE7LpzTqeR8erEUFhFTBotoXduQUnf4FgKRJbwFU1hFLoXH6 TWrENu99jRFZrNKUPavRlQCBdvEqppYX4tiO1sQ7dJq FYWePnmAYfzTZoLqtbZHEtj221se6catY8KBZnXYErvvmht2InGGTaHSBepN13WQBfJSZtxb9uetmxfQ CjbqQnI0Pejec6cX4yJQEjQLgaECMhXCScPeXscHHaZbHeTdUdpCzukLfvPQpxPkOsFVNlZKvcB3rxRz FcZnMyMlxwYXJ9 MD TianX-ray Chest 2 Tnpel5051-08-26 17:20:41No evidence of acute complications or metastatic disease. Interface, Radiology Results In - 2019 11:22 AM CST FULL RESULT:Examination: XR CHEST 2 VW, 03/20/2020 11:19 AMClinical History: Malignant melanoma of left upper limb includingshoulderIndication: Evaluation of Disease ProgressionComparison: August 23, 2019Technique: Posteroanterior, lateral and dual-energy radiographs of the chest.Findings:The lungs are normal. There is no pleural effusion or pneumothorax. There is no mediastinal or hilar adenopathy. Coronary artery bypass graft changes. Cardiac silhouette is normal. IMPRESSION:No evidence of acute complications or metastatic disease.MD Tian
--- NOTE | 2020-10-17 09:32 | RAD REPORT ---
EXAM DESCRIPTION: Benjamin Single View10/17/2020 9:00 am CLINICAL HISTORY: Chest pain COMPARISON: none FINDINGS: The lungs appear clear of acute infiltrate. The heart is normal size. Postsurgical change s involve the chest IMPRESSION: No acute abnormalities displayed
[2020-10-17 10:10] LABS: SARS-COV-2 RT PCR NEGATIVE (NEGATIVE)
--- NOTE | 2020-10-17 11:10 | ER ---
Nurse's Notes [facility] Name: Paco Kaiser Age: 70 yrs Sex: Male : 1950 Arrival Date: 10/17/2020 Time: 08:10 Bed 7 Private MD: Edwige Mccrary C Diagnosis: Fever, unspecified;Acute upper respiratory infection, unspecified;Nasal congestion;Acute pharyngitis, unspecified Presentation: 10/17 08:27 Chief complaint: Patient states: Sore throat, cough, and fever since Thursday, TMAX 101, ph prescribed Z pack by Dr Mccrary on Thursday but is not helping. Denies SOB, N/V/D. Coronavirus screen: cough unrelated to allergies, fever, sore throat, Client presents with at least one sign or symptom that may indicate coronavirus-19. Standard/surgical mask placed on the client. Ebola Screen: No symptoms or risks identified at this time. Initial Sepsis Screen: Does the patient meet any 2 criteria? No. Patient's initial sepsis screen is negative. Does the patient have a suspected source of infection? No. Patient's initial sepsis screen is negative. Risk Assessment: Do you want to hurt yourself or someone else? Patient reports no desire to harm self or others. Onset of symptoms was October 17, 2020. 08:27 Method Of Arrival: Ambulatory 08:27 Acuity: NORMA 3 ph Historical: - Allergies: 08:29 codeine sulfate; ph - PMHx: 08:29 Hypertensive disorder; ph - Immunization history:: Client reports receiving the 2nd dose of the Covid vaccine. - Social history:: Smoking status: Patient denies any tobacco usage or history of. Screenin:56 Abuse screen: Denies threats or abuse. Denies injuries from another. Nutritional hb screening: No deficits noted. Tuberculosis screening: No symptoms or risk factors identified. Fall Risk None identified. Assessment: 08:57 General: Appears in no apparent distress. Behavior is calm, cooperative. Pain: Pain at hb worst was 2 out of 10 on a pain scale. Neuro: Level of Consciousness is awake, alert, obeys commands, Oriented to person, place, time, situation. Cardiovascular: Patient's skin is warm and dry. Respiratory: Reports cough that is Respiratory effort is even, unlabored, Respiratory pattern is regular, symmetrical. GI: No signs and/or symptoms were reported involving the gastrointestinal system. : No signs and/or symptoms were reported regarding the genitourinary system. EENT: Reports pain when swallowing. Derm: Skin is pink, warm \T\ dry. Musculoskeletal: No signs and/or symptoms reported regarding the musculoskeletal system. 10:14 Reassessment: Patient appears in no apparent distress at this time. Patient and/or hb family updated on plan of care and expected duration. Pain level reassessed. Patient is alert, oriented x 3, equal unlabored respirations, skin warm/dry/pink. 11:17 Reassessment: Patient appears in no apparent distress at this time. Patient and/or hb family updated on plan of care and expected duration. Pain level reassessed. Patient is alert, oriented x 3, equal unlabored respirations, skin warm/dry/pink. Vital Signs: 08:27 BP 111 / 71; Pulse 87; Resp 20; Temp 98.1; Pulse Ox 95% on R/A; ph ED Course: 08:10 Patient arrived in ED. am2 08:10 Edwige Mccrary MD is Private Physician. am2 08:29 Madhav Saleh MD is Attending Physician. kdr 08:29 Triage completed. ph 08:30 Arm band placed on Patient placed in an exam room, on a stretcher. ph 08:40 Nidia Pickard, RN is Primary Nurse. hb 08:59 CXR XRAY In Process Unspecified. EDMS 08:59 Patient has correct armband on for positive identification. Bed in low position. Call hb light in reach. 11:09 Edwige Mccrary MD is Referral Physician. kdr 11:50 No provider procedures requiring assistance completed. Patient did not have IV access hb during this emergency room visit. Administered Medications: No medications were administered Outcome: 11:10 Discharge ordered by . kdr 11:50 Discharged to home ambulatory, with significant other. hb 11:50 Condition: stable 11:50 Discharge instructions given to patient, significant other, Instructed on discharge instructions, follow up and referral plans. medication usage, Demonstrated understanding of instructions, follow-up care, medications, Prescriptions given X 1. 11:51 Patient left the ED. hb Signatures: Dispatcher [employer] EDMD Madhav Saleh MD MD [facility] Jess Matamoros RN RN Nidia Pickard, RN RN hb Carrion, Basilia am2
--- NOTE | 2020-10-17 11:10 | EDPHYS ---
Physician Documentation [facility] Name: Paco Kaiser Age: 70 yrs Sex: Male : 1950 Arrival Date: 10/17/2020 Time: 08:10 Bed 7 Private MD: Edwige Mccrary C ED Physician Madhav Saleh HPI: 10/17 17:40 This 70 yrs old Male presents to ER via Ambulatory with complaints of Fever, kdr Sore Throat. 17:40 The patient reports fever, that was measured at 101.8 degrees Fahrenheit. Onset: The kdr symptoms/episode began/occurred gradually, 4 day(s) ago. Modifying factors: there are no obvious modifying factors. Associated signs and symptoms: Pertinent positives: arthralgias, headache, myalgias, nausea. Severity of symptoms: At their worst the symptoms were mild moderate just prior to arrival, in the emergency department the symptoms have improved mildly. The patient has not experienced similar symptoms in the past. The patient has been recently seen by a physician: the patient's primary care provider, Dr. Mccrary Started on abx. Historical: - Allergies: 08:29 codeine sulfate; ph - PMHx: 08:29 Hypertensive disorder; ph - Immunization history:: Client reports receiving the 2nd dose of the Covid vaccine. - Social history:: Smoking status: Patient denies any tobacco usage or history of. ROS: 17:40 Eyes: Negative for injury, pain, redness, and discharge, Neck: Negative for injury, kdr pain, and swelling, Cardiovascular: Negative for chest pain, palpitations, and edema, Respiratory: Negative for shortness of breath, cough, wheezing, and pleuritic chest pain. 17:40 Constitutional: Positive for body aches, chills, fever, malaise. 17:40 ENT: Positive for sore throat. Exam: 17:40 Constitutional: This is a well developed, well nourished patient who is awake, alert, kdr and in no acute distress. Head/Face: Normocephalic, atraumatic. Eyes: Pupils equal round and reactive to light, extra-ocular motions intact. Lids and lashes normal. Conjunctiva and sclera are non-icteric and not injected. Cornea within normal limits. Periorbital areas with no swelling, redness, or edema. Neck: Trachea midline, no thyromegaly or masses palpated, and no cervical lymphadenopathy. Supple, full range of motion without nuchal rigidity, or vertebral point tenderness. No Meningismus. Chest/axilla: Normal chest wall appearance and motion. Nontender with no deformity. No lesions are appreciated. Cardiovascular: Regular rate and rhythm with a normal S1 and S2. No gallops, murmurs, or rubs. Normal PMI, no JVD. No pulse deficits. Respiratory: Lungs have equal breath sounds bilaterally, clear to auscultation and percussion. No rales, rhonchi or wheezes noted. No increased work of breathing, no retractions or nasal flaring. Abdomen/GI: Soft, non-tender, with normal bowel sounds. No distension or tympany. No guarding or rebound. No evidence of tenderness throughout. Back: No spinal tenderness. No costovertebral tenderness. Full range of motion. Skin: Warm, dry with normal turgor. Normal color with no rashes, no lesions, and no evidence of cellulitis. MS/ Extremity: Pulses equal, no cyanosis. Neurovascular intact. Full, normal range of motion. Neuro: Awake and alert, GCS 15, oriented to person, place, time, and situation. Cranial nerves II-XII grossly intact. Motor strength 5/5 in all extremities. Sensory grossly intact. Cerebellar exam normal. Normal gait. Psych: Awake, alert, with orientation to person, place and time. Behavior, mood, and affect are within normal limits. Vital Signs: 08:27 BP 111 / 71; Pulse 87; Resp 20; Temp 98.1; Pulse Ox 95% on R/A; ph MDM: 11:10 Patient medically screened. kdr 17:40 Data reviewed: vital signs, nurses notes, lab test result(s), radiologic studies. kdr Counseling: I had a detailed discussion with the patient and/or guardian regarding: the historical points, exam findings, and any diagnostic results supporting the discharge/admit diagnosis, lab results, radiology results, the need for outpatient follow up. Physician consultation: Edwige Mccrary MD Wants pt d/c'd on Augmentin . 10/17 08:40 Order name: Flu kdr 10/17 08:40 Order name: Strep kdr 10/17 08:40 Order name: COVID-19 : Document "Date of Symptom Onset" if Symptomatic. kdr 10/17 08:40 Order name: Group A Streptococcus Rapid Sc; Complete Time: 11:03 EDMS 10/17 08:40 Order name: CXR XRAY; Complete Time: 10:00 kdr 10/17 10:06 Order name: Throat Culture EDMS 10/17 10:10 Order name: COVID-19/FLU A+B; Complete Time: 11:03 EDMS Administered Medications: No medications were administered Disposition Summary: 10/17/20 11:10 Discharge Ordered Location: Home kdr Problem: an ongoing problem kdr Symptoms: have improved kdr Condition: Stable kdr Diagnosis - Fever, unspecified kdr - Acute upper respiratory infection, unspecified kdr - Nasal congestion kdr - Acute pharyngitis, unspecified kdr Followup: kdr - With: Edwige Mccrary MD - When: 2 - 3 days - Reason: If symptoms return, Further diagnostic work-up, Recheck today's complaints, Continuance of care, Re-evaluation by your physician Discharge Instructions: - Discharge Summary Sheet kdr - Sore Throat kdr - Viral Respiratory Infection kdr - Upper Respiratory Infection, Adult, [id number] kdr Forms: - Medication Reconciliation Form kdr - Thank You Letter kdr - Antibiotic Education kdr Prescriptions: - Augmentin 875-125 mg Oral Tablet - take 1 tablet by ORAL route every 12 hours for 10 days; 20 tablet; Refills: 0, kdr Product Selection Permitted 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 EDFL EDMS 09:18 08:40 Influenza Screen (A ordered. EDFL EDMS
[2020-10-17 11:58] VITALS: BP 111/71; TEMP 98.1; O2SAT 95
== END 2020-10-17 11:51 | disposition home or self-care (01) ==
LOC: ER 08:08
DX: J06.9 Acute upper respiratory infection, unspecified (principal); R09.81 Nasal congestion; J02.9 Acute pharyngitis, unspecified; Z20.822 Contact with and (suspected) exposure to COVID-19
CPT/HCPCS: 87070; 87081; 0240U; 71045

== ENCOUNTER 2021-04-11 09:08 | Emergency (ER) | payer OTHER ==
--- OUTSIDE RECORDS SUMMARY | 2021-04-11 09:12 | XMS REPORT | Clinical Summary ---
:1950 Author Organization [facility] MD Pandey [facility] Address [address] [place] [address] Care Team Providers Name Role Phone Char Mccrary MD Unavailable Deanne Santos MD Primary Care Provider [phone] Allergies Active Allergy Reactions Severity Noted Date Comments Fentanyl Other (See Comments) Medium 2017 Nausea, GI intolerance Hydrocodone Diarrhea, GI Medium 08/28/2017 Intolerance Morphine Diarrhea, GI Medium 08/28/2017 Pt states he ca nnot Intolerance tolerate narcot ics and has severe GI upset for >24 h ours Opioids - Morphine Other (See Comments) 09/18/1998 A ll opioids cause GI Analogues upset and verti go Tramadol GI Intolerance 2017 nausea Medications Medication Sig Dispensed Refills Start Date End Date Status amLODIPine 0 11/01/2018 Active (NORVASC) 5 mg tablet metoprolol 0 2017 Active succinate (TOPROL XL) 25 mg 24 hr tablet simvastatin 0 2017 Active (ZOCOR) 20 mg tablet aspirin 81 mg EC Take 81 mg 0 2017 A ctive tablet by mouth. sulfamethoxazole-t Take 1 14 tablet 0 09/12/2019 Active rimethoprim tablet by (Bactrim DS) 800 mouth twice mg-160 mg per daily. tabletIndications: Infection following a procedure, other surgical site, initial encounter tamoxifen Take 1 90 tablet 3 05/19/2020 Active (NOLVADEX) 20 mg tablet (20 tabletIndications: mg) by mouth Lump in left daily. 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 (PRESERVISION AREDS ORAL) tadalafil (CIALIS) 0 11/20/2020 Active 5 mg tablet tadalafil (CIALIS) 0 07/02/2018 Discontinued 20 mg tablet 1 tamoxifen Take 1 90 tablet 3 06/14/2019 Discontin ued (NOLVADEX) 20 mg tablet (20 1 (R eorder) tabletIndications: mg) by mouth Lump in left daily. 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 Active Problems Problem Noted Date Malignant melanoma of left upper limb including should er 08/23/2019 Overview: Added automatically from request for maria teresa carter [id number] Cancer of left male breast 04/04/2019 Cancer Staging: Clinical: Stage IA (cT1c , cN0, cM0, G2, ER+, MI+, HER2-) - Unsigned Pathologic: Stage IA (pT1c, pN1mi, cM0, G2, ER+, MI+, HER2-) - Unsigned Overview: Mandatory CMS ICD-10 2020 UPDATE Lump in left breast 03/23/2019 Encounters Date Type Specialty Care Team Description 03/19/2021 Office Visit Melanoma Surgery Graham Erazo Malignant melanoma MD Marcella of left upper l imb including shoul magdi 03/19/2021 Travel 03/18/2021 Ancillary Procedure Radiology Ana Boyd 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, 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 including shoul magdi 03/18/2021 Travel 11/30/2020 Office Visit Breast Surgical Shea Santos Encounter for follow-up examination after completed treatment for malignant neoplasm (Primary Dx); Oncology Deanne Alamo, Cancer of left male breast, not otherwise specified; Metastatic canc er to axillary lymph nodes 11/30/2020 Travel 09/18/2020 Office Visit Melanoma Surgery Graham Erazo Malignant melanoma MD Marcella of left upper l imb including shoul magdi 09/18/2020 Travel 07/05/2020 Lab Requisition Enrique Blackman MD Chan, Maren M, MD 07/03/2020 Procedure visit Froilan Johnson, [place] cell c arcinoma of lower lip (Primary Dx); MD Dion Basal cell carc inoma of skin of lip 07/03/2020 Travel 07/02/2020 Telephone Laurie Davis RN 06/28/2020 Orders Only Aida Joe Basal cell car cinoma S RN of skin of lip (Primary Dx) 06/28/2020 Orders Only Melanoma Surgery Morro Donovan Basal cell carcinoma M, PA of lower lip (Primary Dx) 06/15/2020 Office Visit Oncology Josselin Patel, Infiltrating duct carcinoma of areola Halladay, of left male 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, 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 06/15/2020 Travel 05/17/2020 Refill Breast Medical Josselin Patel, Lump in lef t breast; Oncology Infiltrating du ct carcinoma of axillary tail of left male breast 05/11/2020 Orders Only Infectious Diseases [place], SARS-CoV -2 MD Viky vaccination after 04/11/2020 Surgical History Surgery Date Site/Laterality Comments CORONARY ARTERY BYPASS 08/18/2017 - 3 vessels , 2 grafts GRAFT 09/17/2017 COLONOSCOPY 04/20/2017 - 04/19/2018 REPAIR OF REDUCIBLE 04/20/2010 - Bilateral INGUINAL HERNIA 04/19/2011 LAPAROSCOPIC REPAIR HERNIA Bilateral 1999 INGUINAL MI EXC SKIN MALIG 0.6-1 CM 08/29/2019 Arm Upper/Left Proce dure: EXCISION OF TRUNK,ARM,LEG MALIGNANT LESION OF ARM(S) - wide ex cision left shoulder; Surgeon: Graham Erazo MD; Locat ion: [facility]; Servic e: SURG ONC - MELANOMA Medical History Medical History Date Comments Hypertension Peripheral vascular disease Hypercholesterolemia Benign prostatic hyperplasia Coronary arteriosclerosis Arthritis Vertigo Basal cell carcinoma - primary Family History Medical History Relation Name Comments Melanoma Brother Breast cancer Sister bilateral mastec kendra radiation Tongue cancer Sister dx. early 50s [facility] Relation Name Status Comments Brother Alive no biological ch ildren Daughter Alive Father Alive no info on dad's side raised by his aunt and uncle Maternal Cousin 1 Alive Maternal Cousin 2 Alive Maternal Cousin 3 Alive Maternal Cousin 4 Alive Maternal Cousin 5 Alive Maternal Cousin 6 Alive Maternal Cousin 7 Alive Maternal Cousin 8 Alive Maternal Grandfather (Age 87) Maternal Grandmother (Age 85) Maternal Uncle 1 Alive Maternal Uncle 2 Alive section cut out of his colon Mother (Age 82) Nephew 1 Alive Nephew 2 Alive Other Alive Paternal Grandfather no info Paternal Grandmother no info Sister Alive Son Alive Social History Tobacco Use Types Packs/Day Years Used Date Never Smoker Smokeless Tobacco: Never Used Alcohol Use Standard Drinks/Week Comments Not Currently 0 (1 standard drink = 0.6 oz pure alcoho l) Sex Assigned at Date Recorded Not on file Job Start Date Occupation Industry Not on file Not on file Not on file COVID-19 Exposure Response Date Recorded In the last month, have you been in contact with No / Unsure 03/19/2021 11:44 AM GAG WRITER someone who was confirmed or suspected to have Coronavirus / COVID-19? Obstetrics History Last Filed Vital Signs Vital Sign Reading Time Taken Comments Blood Pressure 126/78 03/19/2021 1:05 PM GAG WRITER Pulse 73 03/19/2021 1:05 PM GAG WRITER Temperature 37.1 C (98.8 F) 03/19/2021 1:05 PM GAG WRITER Respiratory Rate 20 03/19/2021 1:05 PM GAG WRITER Oxygen Saturation 99% 07/03/2020 4:11 PM CDT Inhaled Oxygen Concentration - - Weight 77.1 kg (169 lb 15.6 oz) 11/30/2020 8:23 AM CDT Height - - Body Mass Index 26.21 06/29/2019 9:46 AM CDT Plan of Treatment Date Type Specialty Care Team Description 12/06/2021 Ancillary Procedure Radiology Shea Santos MD [address] [place], [place] [address] (Wo rk) 12/06/2021 Office Visit Breast Surgical Shea Santos MD [address] [place], [place] [address] (Wo rk) 03/20/2022 Ancillary Procedure Radiology Loretta Fitch PA [address] [place], [place] [address] (Wo rk) 03/20/2022 Office Visit Melanoma Surgery Graham Erazo MD [address] [place], [place] [address] (Wo rk) Health Maintenance Due Date Last Done Comments COVID-19 Vaccination (3 - Pfizer risk 06/26/2020 05/29/2020 , 05/08/2020 4-dose series) Procedures Procedure Name Priority Date/Time Associated Comments Diagnosis XR CHEST 2 VW Routine 03/18/2021 10:45 Malignant melanoma Resu lts for this AM GAG WRITER of left upper limb procedure are in including shoulder the resul ts section. PATHOLOGY OUTSIDE Routine 06/15/2020 Results fo r this INTERPRETATION procedure are in the results section. after 04/11/2020 Results X-ray Chest 2 Views (03/18/2021 10:45 AM GAG WRITER) Specimen Impressions [id number] - 03/18/2021 10:50 AM GAG WRITER FINDINGS and IMPRESSION: 1. Cardiomediastinal silhouette with s ternotomy changes, stable. 2. No pneumothorax, pleural effusion, or focal consolidation. 3. Degenerative changes spine. Narrative [id number] - 03/18/2021 10:50 AM GAG WRITER FULL RESULT: Examination: XR CHEST 2 VW, 03/18/2021 1 0:45 AM Clinical History: Malignant melanoma of left upper limb including shoulder Indication: Restaging Disease Progressio n, COVID-19 Not Suspected Comparison: 03/20/2020 Technique: Posteroanterior, lateral and dual-energy radiographs of the chest. Procedure Note Cody Moncada MD - 03/18/2021 FULL RESULT: Examination: XR CHEST 2 VW, 03/18/2021 1 0:45 AM Clinical History: Malignant melanoma of left upper limb including shoulder Indication: Restaging Disease Progressio n, COVID-19 Not Suspected Comparison: 03/20/2020 Technique: Posteroanterior, lateral and dual-energy radiographs of the chest. IMPRESSION: FINDINGS and IMPRESSION: 1. Cardiomediastinal silhouette with st ernotomy changes, stable. 2. No pneumothorax, pleural effusion, o r focal consolidation. 3. Degenerative changes spine. Performing Organization Address City/State/ZIP Code Phon e Number [id number] Pathology Outside Interpretation (06/15/2020) Pathologist Sig nature Materials Received Accession#, Stained, Block, Unstained Collect ed Received [facility] A. [id number], 2 SS, 0 BLOCKS, 0 USS 06/15/2020 021 Diagnosis Outside material ([id number], 2 SS, 0 BLOCKS, 0 USS, collected on 06/15/2020): [facility] Electronically dean d by Josue anaya MD Skin, right lower cutaneous lip, shave (1xH&E: A): on 07/06/2020 at 4:52 BASAL CELL CARCINOMA, NODULAR PATTERN, PRESENT AT TISS UE EDGES. PM Skin, sternum, shave (1xH&E: B): Seborrheic keratosis, irritated and inflamed, tissue edges appear free. Disclaimer "Some tests reported [facility] here may have been developed and performance characteristics determined by [facility]. These tests have not been specifically cleared or approved by the U.S. Food and Drug Administration. If applicable, controls were reviewed and showed appropriate reactivity." Specimen Tissue Performing Organization Address City/State/ZIP Code Phon e Number [facility] [place] [address] [address] [facility] after 04/11/2020 Insurance Payer Benefit Plan Subscriber ID Effective Phone Address Typ e / Group Dates MEDICARE MEDICARE PART [id number] 2015-Prese [phone] [facility] Medicare A AND B nt 82 SOLUTIONS [address] [place] [address] [employer] MANAGED A[employer] HMO [id number] 2000-Prese [id number] [place] [address] Advance Directives Type Date Recorded 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
--- OUTSIDE RECORDS SUMMARY | 2021-04-11 09:12 | XMS REPORT | Continuity of Care Document ---
:1950 Author Organization [facility] t Address [address] [place] [address] Care Team Providers Name Role Phone [phone] Primary Care Physician Unavailable DEANNE SANTOS Attending Clinician Unavailable Castro GALINDO I Attending Clinician Marcella SOUZA Attending Clinician Unavailable Noemi Boyd APN Attending Clinician Noemi BOYD Attending Clinician Unavailable Deanne Santos MD Attending Clinician [phone] DEANNE SANTOS Attending Clinician Unavailable Pio Blackman MD Attending Clinician Suresh GALINDO M Attending Clinician Alex GALINDO Attending Clinician Mane ORELLANA Attending Clinician Unavailable Gala ORELLANA, S Attending Clinician Unavailable Gume Alvarez Attending Clinician Jorge GALINDO Attending Clinician Jordan MAZA Attending Clinician Nato GALINDO Attending Clinician Payers Payer Name Policy Type Policy Number Effective Date Expiration Source Date MEDICAREMEDICARE PART [id number] 2015 MD Tian A AND 00:00:00 [id number] 2015- [id number] [address] [address]Medicare AETNA MANAGED [id number] MD Tian CAREAETNA 00:00:00 [id number]/[id number] -Present[id number] [id number] COVID VACCINE ADMIN / [id number] 2020-05-08 TESTING 00:00:00 Problems Condition Condition Condition Status Onset Resolution Last Treating Co mments Source Name Details Category Date Date Treatment Clinician Date Malignant Malignant Disease Active Overview: melanoma melanoma 5-05 Formattin And erso of left of left 00:00: g of this n upper limb upper limb 00 note including including might be shoulder shoulder different from the original. Added automatic ally from request for surgery [id number] Cancer of Cancer of Disease Active 2018-04 Overview: left male left male 2-16 Formattin A nderso breast breast 00:00: g of this n 00 note might be different from the original. Mandatory CMS ICD-10 2020 UPDATE Lump in Lump in Disease Active 2018-04 MD left left 2-04 Anderso breast breast 00:00: n 00 Allergies, Adverse Reactions, Alerts This patient has no known allergies or adverse reactions. Family History Family Member Diagnosis Comments Start Date Stop Date Source Natural brother Melanoma MD Watkins on Natural sister Breast cancer MD Juan godinez Natural sister Tongue cancer MD Juan godinez Social History Social Habit Start Date Stop Date Quantity Comments Source Exposure to Not sure MD Tian SARS-CoV-2 (event) Alcohol intake 2019-09-05 2019-09-05 Ex-drinker MD Swanson n 00:00:00 00:00:00 (finding) Tobacco use and 2019-03-23 2019-03-23 Smokeless tobacco MD Tian exposure 00:00:00 00:00:00 non-user Sex Ass[birth year] MD Watkins on 00:00:00 00:00:00 Smoking Status Start Date Stop Date Source Never smoked tobacco MD Tian Medications Ordered Filled Start Stop Current Ordering Indication Dosage Frequency Signature Comments Components Source Medication Medication Date Date Medication? Clinician (SIG) Name Name tadalafil Yes (KIKI) 5 8-03 Anderso mg tablet 00:00: n 00 vit A/vit Yes Take by MD C/vit 3-16 mouth Anderso E/zinc/lynette 11:21: daily. n er 59 (PRESERVISI ON AREDS ORAL) tamoxifen Yes Infiltratin 20mg Take 1 (NOLVADEX) 1-30 g duct tablet (20 A nderso 20 mg 00:00: carcinoma mg) by n tablet 00 of axillary mouth tail of daily. left male breast sulfamethox Yes Infection 1{tbl} Take 1 MD azole-trime 5-25 following a tablet by Sky thoprim 00:00: procedure, mouth n (Bactrim 00 other twice DS) 800 surgical daily. mg-160 mg site, per tablet initial encounter tamoxifen 2020- Infiltratin 20mg Take 1 (NOLVADEX) 2-25 01-30 g duct tablet (20 Anderso 20 mg 00:00: 00:00 carcinoma mg) by n tablet 00 :00 of axillary mouth tail of daily. left male breast amLODIPine Yes (NORVASC) 5 7-15 Anderso mg tablet 00:00: n 00 tadalafil 2020- No (KIKI) 20 3-15 11-30 Anderso mg tablet 00:00: 00:00 n 00 :00 metoprolol Yes succinate 5-15 Anderso (TOPROL XL) 00:00: n 25 mg 24 hr 00 tablet simvastatin Yes (ZOCOR) 20 5-15 Anderso mg tablet 00:00: n 00 aspirin 81 Yes 81mg Take 81 mg M D mg EC 5-15 by mouth. Anderso tablet 00:00: n 00 Vital Signs Vital Name Observation Time Observation Value Comments Source Systolic blood pressure 2021-03-19 19:05:31 126 mm[Hg] MD Tian Diastolic blood pressure 2021-03-19 19:05:31 78 mm[Hg] MD Tian Heart rate 2021-03-19 19:05:31 73 /min MD Pandey son Body temperature 2021-03-19 19:05:31 37.11 Louise MD Edwige tomlinson Respiratory rate 2021-03-19 19:05:31 20 /min MD Edwige tomlinson Body weight 2020-11-30 13:23:09 77.1 kg MD Dannie sanchez BMI 2020-11-30 13:23:09 26.21 kg/m2 MD Dannie sanchez Oxygen saturation in 2020-07-03 21:11:10 99 /min MD Tian Arterial blood by Pulse oximetry Procedures Procedure Date / Time Performed Performing Clinician Sourc e XR CHEST 2 VW 2021-03-18 16:45:59 Ana Boyd MD PATHOLOGY OUTSIDE 2020-06-15 00:00:00 Kristin Prince MD INTERPRETATION Plan of Care Planned Activity Planned Date Details Comments Source Future Scheduled Test 2020-06-26 00:00:00 COVID-19 Vaccination (3 MD Tian - Pfizer risk 4-dose series) [code = COVID-19 Vaccination (3 - Pfizer risk 4-dose series)] Encounters Start End Encounter Admission Attending Care Care Encounter Source Date/Time Date/Time Type Type Clinicians Facility Department ID 2019-06-29 Outpatient EFRAIN, ELIOFB MARGOT [id number] [facility]FB 16:35:47 MARSHA 2021-03-19 2021-03-19 Outpatient KIRA SOUZA MDA MDA [id number] 11:45:22 14:00:53 RAVI man 2021-03-18 2021-03-18 Outpatient KIRA ANNAMARIAKIM MDA [id number] 10:32:00 10:32:00 ANA man 2020-11-30 2020-11-30 Outpatient EL EFRAINKIM MDA [id number] 08:19:11 09:12:44 MARSHA man 2020-05-29 2020-05-29 Outpatient SLE SLE [id number] SLE 00:00:00 00:00:00 2020-05-29 2020-05-29 Outpatient EL SLE SLE [id number] SLEH 00:00:00 00:00:00 2020-05-08 2020-05-08 Outpatient SLE SLE [id number] SLE 00:00:00 00:00:00 2019-05-14 2019-05-14 Emergency E MHFB [facility]FB [id number] [facility]FB 09:11:00 09:11:00 2019-05-12 2019-05-12 Outpatient MHFB MARGOT [id number] [facility]FB 08:17:00 08:17:00 2019-04-21 2019-04-21 Outpatient [facility]FB MARGOT [id number] [facility]FB 08:38:00 08:38:00 Results Test Description Test Time Test Comments Results Result Comments Source Pathology Outside Interpretation 2020-07-06 21:52:00 Test Item Value Reference Range Interpretation Comme nts Materials u0xbeVSoCMCjvVHwMlIhITPiSFLgm0muTNPunVAmJxQaYtWoEzPmPajxoCLjJMYnRaSfl6qug478qBSt t3rpLPPcGcU7qZZrGIQibTCbH105BHNgRJzmq7auu2MkPZDkaKUfg7Y7CTXMiqwozSu3wXjcR10dm0Y2 UiyfO1faOHEpATWrC8GpGE0rYKGqZdd0QVS5YME1BBT Received zJKKkZ9QhKH5bTYYwrBPdLHk4f8pqqRfjMUZlWES5y0spLFhecdNhPV7gpq7jiTm0i1ljlmThENZbHWD mdCQLLUXjO2RamBpjSy5gqNm3oFpxRvxqREG0Nzh5OF8fwc04zmu9sVlzJDEqzqruTjY3OUyzJWQkkin zNPv6EBlnFMVeuIivVNkdRFWhuunuLKkxYUVuxKH4TQ (test code BelNWnE1BeNIBlPFxmLJYvklp3AfCgXj0oxMCqsQzjLBfwp4mul5wyhKPeKxf4UOEhQyVaFsdyYOhra5 Xwv6adSVCpbv3iORM9oSNfkCoru6G0dJMaFOQgfVQoebFcNLHlrv11nFPqaEQczSUfjz7emgPrxTOhmV IcHBP4mQNmsxSqJFChdXGiBMOvGI1zsCVeUHHlwW7go = 9973) gbxWXQcZeUpqzrlMBLuuVnxjtInOb6wpUpyBWP5ZPjoF1nxlO3gLaZ7RWmeF6cddQ4iZSj1BJchkVO8V VCpvO8rVM7aqgjpt2xxJcReYQ3cbcnzm9qiUeTjIE7wamh8x2anLNB2ANieGGYlTaJ9hmF4UQZhkXWiC HErhDxaQCzyv091BUU2IfMoCTUfp0KpL6EicAsvY56u bIfuN19xJQSxtAmvsV9naQxuzU0kHaBoBlXiLNj4ku79SGl8yaazlVdvOXc6jtXwJFEmBYO2FPIbeVHb PJOmT4a1ltKnZMVoPXH2VKQomEWeCJZoM5w1zeFqERA2NRx5frFgQPDcxSTjeEVuNGMxSyYokGBfUDFp LgDrFSLqfOKxuJPovSSwjY5bsFvkYVGrmJHyjM4sHPV 8FJEopotiHbAfaAKtBYDvdGSfox51VVCbivWeeHNleEzfkZQjHVF2EIFeYMMsDTGzHII5WZNpBoQotsP rRUfqwKMaASXlRTOpROAqLAAkHDF0DOYwAjWvljHeMGbiqZLhJYZgONIxBKCzKIDxWDZ4NTEiQzNccsP kRNmeaBQzWXSdXSMnOBSmXVIzYVO1SQPnObNlwjVbVK cmlGEjRNLkEQzaiPWxZDG9B0vcmUBkLINjGXqvpTQjPKBuN6xwlERbSKmuEPFdoEDiQntrIQGtdGFxQr HiT4qaFNYeRgSeF5LjaDt9AIEuRDMlrbRbvSCndOkmzXMqQMJ7LQPeDTIaTDXzZWL3YHYkYrGkkfYqXV qijJYmAYIwVVJkJONdJUMfASK0YDWzUhIxtjYcQPoxl DGbHLQwHWTbTZXpRLGzGJE7QIDsQoXkpzOzYWnrvKHhOHVoFKRaHOPhCDHxFFQ1VOPoBlUnwwCiMCyqc UNpBNHyTUtpqKUxQRW5U0dptNDrSEXkCLooeMJbGJLuO8ajzILoQPudKOHxyINjJjxdXDWhyNZkMzPsI 5hxYZZyDtQqG3NpfAk8QaGeIEVbqdRgdTVixVztuGBa OFW9TDIdFUSoZWLePAF9KBYmXmWrtqYyQBckkPIdJVNqPLCpNBKuOKQvGWR9QYJmYsNjrhYvFNkvcGWz GCSaBEThEGZgULVaCHU4GAXdKlTdyfIuZVidmXXsHFOeWUDuFICgCYWpREF0ERXhPfGvafGwGNxhcBFa ZMSyBZcswNPxHCL8I3vgkLAgOSWhXHgqnTUnMAYuE4a gkEVzETbzNPXqlDXmWnfaZZPkiDAiJzDlR7jlTGCzCvVoO5CciJs4DlYtLXZmulIcjK90Toxti7OeCIM eSLQ3EFtiIWvczAhcqPGtkgpqGDygpyLwQNanpsrbZEFxDZswK3naAuRaXKBkmXcyNCdin8HoPZFiYJV pQnquwaEkQVEfBZPoWUYaoH9qUszrH4FowN6xHZvhBn ymA8pwLYInn8TyyO4pHCkktIYeqjmmZVwbzjFpPAiboyluZUNbCIpyO8kmOrOhUKZzgQmvJFhyy9CqBS WxBQJcYivsujXqIFg9xiHlCEZlaVusgOQxSMvxtnPkhFrgo2MvaaGxoDynMUZcMCg8tcXtzhwlkUz0dV RfzPakVZRajVvvnU0jAuOkGbHwCDerqZPerdgiYWpsy zRcMAulkwlrCPWcOYrdA8mdOdEwKXJslOdgDUxtn4BwPIAfPPJqGpxvwvJaCUQoF69mnMSqsHFhWEVyV AyeIBZpEBWxPhUiaYNmRwKbOzOqiAezuOumPCcgFwWrRCXvCJbvX4nyZbDgP1UoCNYwGdRvcCFiM0hvF 3YppZjvCAHxSRhumBMdRHRvsCDkKAT3dTHeujZeiVHs fRIfFTVtKHvtTIA8wOTqzbsgeERydeqiDEetplL6DDOrKSgrSSQbWJCvNhNydDJnMgDeHoZjaCenqPww AQrdIdZwXFMfDIyrH5geVoZeP1RfFIXnJxKaGuOADJMfpDVzEQibaJJqzallKHpyijQiUWklkydoPDTs UWriX6oaLoCdNSTnnYzuUVevx9SpAMDmAGQhJgocbdI gQSr8pzJjOZJfiGdbaI47Cazqib14WRIlx0ynXVOuA2DzyCIeDJZglJJnMYlqPYazuHZsHKRnKiatNBR tvBPkXDXpRQvhzQStMICrQoQaEVUmbVSqLYWnTKYbjGSzEDJ1Z7a3ooJzIHRfBZy5mcCkLKLyJiXvmJD lYYQ4EJa7YzxhmiA9aKYkE6a5UzyefkYoTNzvxGBqpx 93DRAueqYhkRMfvOzgfYMhUJG5RPIzEZYmUUWxJIO3QWHvKsVvisKlWNabdOFcZEPnAWRlPDPzJFVsWO D6ZQJrEjNupcTjVQhinGHnFJGyEUEcKAByUGTeVNT5SPDoZqDvvuNnOWkbjNIvREVmBRSwZGXfRMJbWR U2UTBpLpUujyCpCSksxLEeIQFhPNsjfVUjKWH7Z6snx LQlZBYaCJfopHOjITPnD9eqeTIoJVhoJATghJBoCdyxFMPtqCPuPlOuG0cwRFAbNgKkK1XliEd7KAVsU VRhljOdpLKvdPqurZCcXWZ9NPBvVSYnUJEeIMH6FPQpIcCvshZwPWbtbFAlPLVcDUCpMFGoOJFzIWQ4T WQaNzKdbqJsQClpjZCdZPXqFODbYKFlTRMdMLI7PIBg DvEdevJdFKhcdPMdXELzOVMaETDyZADsQYB3OYNpSgOvxqLaUArxzIPfPOPxWSuqvPEvMGZ9X4ycyIJb NAKvHQrfiNBeRAZaY3hleQDhMHcjTLWvmDKsDrkiALBixXVkElIeJ9bdQGHkCeXnA5TcuNu6YbSpTGRc kyBouEHxmZmyuLAlCCJ7PAVkRWRlYFPvINZ2QAJbGuF ofjDzFIeveNTtEGLpLTAmOOUiVXBuLBH1LOIiXcRxozXqDEtejDHfSFTmXIVkBBBrEOGrOMP2NESiKmH fdaMvOHuynTEnFBXnUFKdKDPhWEOuEDG7WHEyBnBdzqWzUBicfIBdBXYcMOfytXUzIZF9A5qnwFGwQRI hQCybdQBjMUDsK6azbXZoCGbrMGHvaWHzUnhnSHLcaZ IsQnVqZ4jaZPKaXjSnU5UkyFm4ShMkDUGvraRqhM78Knnbg2ChVLOlJNA5JVfxQPqrpFipjTYygmkaFR riaqE6GEXgQFskDXBzOSIqSqXviRAlMbWmYbJdnQcqdMgqQIcyMaZyTLNjCYscQ2vjSnUrM6KvXSVhZv DxDI8hUfNWAgIeADI6RoAfIFYbS9WlNUYnCbqYG2fCV VFkTORVN0fbrBJafxjrXKgbkvZyJVimboboJXJbWPeoM9kkDcCaUFFraHssHHbll0YhMKYeYDYiBsjsv jIrDJq1ktLyQFBfqDhwaATzAUigjwXjeFhxd0VoqoGizLmjWYTmVCCtWGYiRCcyFNOjZSEgEuDfoRpns Q3rMpOtViDxFMltLV4oVGVwY4uhlLMuHITjSFIvN2rt EnNbaQ4noQnzEFpgNxNdHjFkBYKgMkS6DtTuMuKuiCetjC5qZsQrXpThONcsUD8sYQXkI4nabVEhQLTb JWMtB2rqSrLukY0ueBhoQDshNvTgUwOzNKtyeFXyvCelYVkwCWBqhvHxxX99Omsfh5YtADMmWHI6SMxy QNuafXfvjWAxibseMTimblH4UWMkQFqeBTGpZMYvWqL woPYpQbItKbTsdZkbxYxhVAhfHxKhKGFzMLoeG4xiCaXqC0RjECRuTjLqIp2rDH0zOSKaPCPjUJxqCUZ vKPGsMcRxrILrAwXtDmUwaEdbqQgyBWhrOfRuMORoPNoeU0udItVyF8IqUTVgCeNzkKNxJ9rpB4GlmPd mfsNoePvhs5ymdEKcRRygk8JkhwEkeThdWVReVGSgVG YbABkhGMJeYXIqStYjiZyqqS8rTnPyCpXqEYysCV3rZASrR1xgsSHeKTEgJKJkM6vcEzKpjZ3jePxdLF xmczIwXHBhcn0= Diagnosis r5rhhJCdNIPzzXY8XgGsYDAsv9eag9DruPYtdZJpVGbykABfpsHiff44oTK7fA01SK4bYXCwMxT2TZIp ldV9Drf6HJWmPGNbqNTbV399k4gkr5unncQceHB5qOfoBHPnBRVmLJfvSMCkZaNbJ3T9y7ihQEHmYIAq mldnoMHmUtFFOgXgMOO9XkPdUMIqQ4DwZGRuZwrOY3v (test code GRSAlDRTVGyafV04ulBAdcLKmQA7eFCOmJmZtVbCwPMo9LYDfjrddLRGqnXj4KzLzlBviOkOcLYWzqU1 lRJKxI1q5NAjwh9QtNIW3pTUfFE82mbSgeWZcPQClSYTfSHwbzVrfMNmeAOp4JCPhywvnsLB7YIWtsZy fTRL2SCKSPUITKJYGVOyBZWNZGjUSWz7DLMgvQz8QIA = 34) cCAjACWEUXDJUYXSBAKmJWRI1MTVIZDEPES3YHMPNVFOoOKs7dfLBtDAgbHgG3EAoggQ13LtEzmVdiHj Q2BEqgGXAlqAy7BqSzEsvrZHdviekpTRVNu8yhRHImvVPtnsWsZORhfGG8ANAmINjULoY3HFKiKehxZU RpaSAzBXKzWd2wftlaaPJfy1TdQDIsh7sqPZJebzZwo KA5ADFcJH2hJYisEiwljTYpYWR7t XNzdWUgZWRnZXMgYXBwZWFyIGZyZWUuXHBhclxwYXJkXHBhcn0= Disclaimer h6xneLIhBSRucSLoUmGlFMIjGAYlw2mhQDHlwFUhVzIkNsNzKfAdMknoxDMiOJQvIlQxz9jfq967hCXy c6ecEACuNoI6hNLwFGDfeOKjI310OBEiOJxjq0atd9PrEHCqsACng3K8YCJHsdwdpCr6zHmwX37hk0R0 TcftY2axVNBbQSCwB5QlKN6aWWDdYrj6AAE6XTT1GFK (test code wZCZoY3CsCZ7rWIOrkOQzLRh8q6ptdWwmUXGyCVM2l3mzOYereqStAC9vio2xrYl4d5jffoQlIRCpWJD ayYTELUWiA5ZydAmeCz8amZr7qSzgSjnuVIH9Ydo8IO5cqp94gvz4tRooOLSdmsyfVpE1ROrsCDGuncs vUYi0MThfKEApjQT3XTTmfUJoZ6EpUBIfLB7lncq4PU = 9844) O9XBpsJHKbMmI8LVYunMKmIPOuvAdpWZuxz183EGG9FvYxJH6nD2Sxx2H9jO6vaSCdPXMonVGiPtDfQF Xzpl8hqWGsIVqof1GuXKT5leQ5zULfeKJwBMNxIH31Qfdwh5ZzFrbsJOL6LYJuyqBsh8Sdz1quYpRpvn FcD3ojA0JrPACsBPPfAKIfBsWycrOnr6Rdd3VpzNShs Pg6q9fjQLXpVJEtiIrtc4muJPR1CCReB5B8zEUnm0dvNPqjZLHheQQ2bwW5LJVizDXtI4WvfG7lKGXiK B0edwi7w7xvQBW3WMpcGDRhAiB4nbZ5SKWrmWGrWBMyrYglTUwut086GKC2TlLtPJJbj1YbV5CluOhtT 67peOkxZ12aULKfxAivnX9dsTtgmZ7mFcEuQcDuHUtv rYtynOOleqlqYWqvgzU9NXaemkbhUDEnVRvmZ3nsHlQfIACmuLeeUMvbv2QbACYhONMpNmrigoG7KCNE k69qENUqc7IbPZCzpA3zcROlZIrnyqFmzTO2WHzcsfXcDqDecoMvSJElxS3zFBAqWY1gXPTllkRczn2w cjXrLJFsSPOvI3QxzystsMaifsBpHKHjbh0xejBkYZS 8DRJOSP8YVAPaAIIcm68gRVNrbLmfzG0tmLZlrxLfKCBrv2BqlE1yvPGBFAWfP2plNN8dBAnyg5TtmQS zvPAslNR1ATMmq1CzCcRsewEipVQqaHYcT7WyxYpaC8shUOQcIUDdpcPudTQmc0DvDROyrXG7hYJmOD6 PDiXDd32mLLEnPKIKutGgEUDllEohiFM9beY4nA4uLc GEEpPyiOQuePJkNptcANMrw468il7kuwP9TATxYWMfwolip7IfKXBtEAFizG77NGPdLSJuwv3omrwrbC LyjhKhZ4Pgfie4nS3sLOObHNwpNSHvQRBaIrMraYWgNtLyFgMhsVnubCweNFvcJfUpWNOzDBtrF5srKs FcZnMyMlxwYXJ9 MD Tian
--- NOTE | 2021-04-11 09:47 | RAD REPORT ---
EXAM DESCRIPTION: RAD - Chest Single View - 04/11/2021 9:35 am CLINICAL HISTORY: FEVER COMPARISON: Chest Single View dated 10/17/2020; Chest Pa And Lat (2 Views) dated 08/26/2017; CHEST PA A ND LAT 2 VIEW dated 11/28/2009 FINDINGS: Lines: None. Lungs: No evidence of edema or pneumonia. Pleural: No significant pleural effusions or pneumothorax. Cardiac: The heart size is within normal limits. Bones: No acute fractures. Sternotomy. Other: IMPRESSION: No acute cardiopulmonary disease.
--- NOTE | 2021-04-11 11:36 | ER ---
Nurse's Notes [facility] Name: Paco Kaiser Age: 70 yrs Sex: Male : 1950 Arrival Date: 04/11/2021 Time: 09:10 Bed 12 Private MD: Diagnosis: Fever, unspecified;Viral infection, unspecified Presentation: 04/11 09:20 Chief complaint: Patient states: Scratchy throat, low grade fever, cough x 4 days. jl7 Coronavirus screen: cough unrelated to allergies, fever, sore throat, Client presents with at least one sign or symptom that may indicate coronavirus-19. Standard/surgical mask placed on the client. Provider contacted for isolation considerations. Ebola Screen: No symptoms or risks identified at this time. Initial Sepsis Screen: Does the patient meet any 2 criteria? No. Patient's initial sepsis screen is negative. Does the patient have a suspected source of infection? No. Patient's initial sepsis screen is negative. Risk Assessment: Do you want to hurt yourself or someone else? Patient reports no desire to harm self or others. Onset of symptoms was April 08, 2021. Care prior to arrival: None. 09:20 Method Of Arrival: Ambulatory 7 09:20 Acuity: NORMA 4 jl7 Triage Assessment: 09:21 General: Appears in no apparent distress. uncomfortable, Behavior is calm, cooperative, jl7 appropriate for age. Pain: Denies pain. EENT: Reports sore throat. Neuro: Level of Consciousness is awake, alert, obeys commands, Oriented to person, place, time, situation. Cardiovascular: Patient's skin is warm and dry. Chest pain is denied. Respiratory: Airway is patent Respiratory effort is even, unlabored, Respiratory pattern is regular, symmetrical, Denies shortness of breath. Derm: Skin is pink, warm \T\ dry. Historical: - Allergies: : codeine sulfate; jl7 - Home Meds: : tamoxifen oral [Active]; Metoprolol Tartrate Oral [Active]; amlodipine oral [Active]; jl7 Simvastatin Oral [Active]; - PMHx: 09:21 Hypertensive disorder; Hypercholesterolemia; breast cancer- left; jl7 - PSHx: 09: Coronary artery bypass graft; jl7 - Immunization history:: Client reports receiving the 2nd dose of the Covid vaccine, Ubers[employer]. - Social history:: Smoking status: Patient denies any tobacco usage or history of. Screenin:53 Abuse screen: Denies threats or abuse. Denies injuries from another. Nutritional ss screening: No deficits noted. Tuberculosis screening: Never had TB. Fall Risk None identified. Assessment: 11:53 Reassessment: Patient appears in no apparent distress at this time. Patient and/or ss family updated on plan of care and expected duration. Pain level reassessed. Patient is alert, oriented x 3, equal unlabored respirations, skin warm/dry/pink. Vital Signs: 09:20 BP 138 / 83; Pulse 92; Resp 17; Temp 98.3(O); Pulse Ox 97% ; Weight 72.57 kg; Height 5 jl7 ft. 7 in. (170.18 cm); Pain 0/10; 09:20 Body Mass Index 25.06 (72.57 kg, 170.18 cm) jl7 ED Course: 09:10 Patient arrived in ED. ds1 09:18 Madhav Saleh MD is Attending Physician. kdr 09:21 Triage completed. jl7 09:21 Arm band placed on right wrist. jl7 09:34 Chest Single View XRAY In Process Unspecified. EDMS 09:49 COVID swab sent to lab. Strep swab sent to lab. kv1 11:05 Craig Vega, RN is Primary Nurse. jl7 11:53 Patient has correct armband on for positive identification. Bed in low position. Call ss light in reach. 11:53 No provider procedures requiring assistance completed. Patient did not have IV access ss during this emergency room visit. Administered Medications: No medications were administered Outcome: 11:35 Discharge ordered by . kdr 11:53 Discharged to home ambulatory. ss 11:53 Condition: good 11:53 Discharge instructions given to patient, Instructed on discharge instructions, follow up and referral plans. Demonstrated understanding of instructions, follow-up care. 11:55 Patient left the ED. ss Signatures: Dispatcher [employer] EDMS Madhav Saleh MD MD [facility] Radha Lopez ds1 Grace Siddiqi RN RN ss Craig Vega RN RN jl7 Adan Garcia
--- NOTE | 2021-04-11 11:36 | EDPHYS ---
Physician Documentation [facility] Name: Paco Kaiser Age: 70 yrs Sex: Male : 1950 Arrival Date: 04/11/2021 Time: 09:10 Bed 12 Private MD: ED Physician Madhav Saleh HPI: 04/11 09:39 This 70 yrs old Male presents to ER via Ambulatory with complaints of Fever. kdr 09:39 The patient reports fever, that was measured at 101 degrees Fahrenheit. The patient kdr reports fever, His maximum temperature occurred on Thursday at 101.0. Patient's since had maximum temp of 99. Onset: The symptoms/episode began/occurred gradually, 1 week(s) ago. Modifying factors: there are no obvious modifying factors. Associated signs and symptoms: Pertinent positives: cough, that is dry, Pertinent negatives: abdominal pain, altered mental status, arthralgias, backache, chest pain, chills, diarrhea, pulling at ears, earache, shortness of breath. Began as a sore scratchy throat and then proceeded into his chest and upper airway. Historical: - Allergies: 09:21 codeine sulfate; jl7 - Home Meds: 09:21 tamoxifen oral [Active]; Metoprolol Tartrate Oral [Active]; amlodipine oral [Active]; jl7 Simvastatin Oral [Active]; - PMHx: 09:21 Hypertensive disorder; Hypercholesterolemia; breast cancer- left; jl7 - PSHx: 09:21 Coronary artery bypass graft; jl7 - Immunization history:: Client reports receiving the 2nd dose of the Covid vaccine, Pfizer. - Social history:: Smoking status: Patient denies any tobacco usage or history of. ROS: 09:39 Constitutional: Negative for fever, chills, and weight loss, Eyes: Negative for injury, kdr pain, redness, and discharge, Neck: Negative for injury, pain, and swelling, Cardiovascular: Negative for chest pain, palpitations, and edema, Abdomen/GI: Negative for abdominal pain, nausea, vomiting, diarrhea, and constipation, Back: Negative for injury and pain, : Negative for injury, bleeding, discharge, and swelling, MS/Extremity: Negative for injury and deformity, Skin: Negative for injury, rash, and discoloration, Neuro: Negative for headache, weakness, numbness, tingling, and seizure activity. Psych: Negative for depression, anxiety, suicide ideation, homicidal ideation, and hallucinations, Allergy/Immunology: Negative for hives, rash, and allergies, Endocrine: Negative for neck swelling, polydipsia, polyuria, polyphagia, and marked weight changes, Hematologic/Lymphatic: Negative for swollen nodes, abnormal bleeding, and unusual bruising. 09:39 Respiratory: Positive for cough, with no reported sputum, Negative for dyspnea on exertion, hemoptysis, orthopnea, pleurisy, shortness of breath, sputum production, wheezing. Exam: 09:39 Constitutional: This is a well developed, well nourished patient who is awake, alert, kdr and in no acute distress. Head/Face: Normocephalic, atraumatic. Eyes: Pupils equal round and reactive to light, extra-ocular motions intact. Lids and lashes normal. Conjunctiva and sclera are non-icteric and not injected. Cornea within normal limits. Periorbital areas with no swelling, redness, or edema. Neck: Trachea midline, no thyromegaly or masses palpated, and no cervical lymphadenopathy. Supple, full range of motion without nuchal rigidity, or vertebral point tenderness. No Meningismus. Chest/axilla: Normal chest wall appearance and motion. Nontender with no deformity. No lesions are appreciated. Cardiovascular: Regular rate and rhythm with a normal S1 and S2. No gallops, murmurs, or rubs. Normal PMI, no JVD. No pulse deficits. Respiratory: Lungs have equal breath sounds bilaterally, clear to auscultation and percussion. No rales, rhonchi or wheezes noted. No increased work of breathing, no retractions or nasal flaring. Abdomen/GI: Soft, non-tender, with normal bowel sounds. No distension or tympany. No guarding or rebound. No evidence of tenderness throughout. Back: No spinal tenderness. No costovertebral tenderness. Full range of motion. Skin: Warm, dry with normal turgor. Normal color with no rashes, no lesions, and no evidence of cellulitis. MS/ Extremity: Pulses equal, no cyanosis. Neurovascular intact. Full, normal range of motion. Neuro: Awake and alert, GCS 15, oriented to person, place, time, and situation. Cranial nerves II-XII grossly intact. Motor strength 5/5 in all extremities. Sensory grossly intact. Cerebellar exam normal. Normal gait. Psych: Awake, alert, with orientation to person, place and time. Behavior, mood, and affect are within normal limits. Vital Signs: 09:20 BP 138 / 83; Pulse 92; Resp 17; Temp 98.3(O); Pulse Ox 97% ; Weight 72.57 kg; Height 5 7 ft. 7 in. (170.18 cm); Pain 0/10; 09:20 Body Mass Index 25.06 (72.57 kg, 170.18 cm) 7 MDM: 11:35 Patient medically screened. kdr 11:39 Data reviewed: vital signs, nurses notes, lab test result(s), radiologic studies. kdr Counseling: I had a detailed discussion with the patient and/or guardian regarding: the historical points, exam findings, and any diagnostic results supporting the discharge/admit diagnosis, lab results, radiology results, the need for outpatient follow up. 04/11 09:19 Order name: Chest Single View XRAY; Complete Time: 10:51 kdr 04/11 09:38 Order name: Strep; Complete Time: 10:51 kdr 04/11 10:21 Order name: SARS-COV-2 RT PCR; Complete Time: 11:23 EDMS 04/11 10:47 Order name: Throat Culture EDCT Administered Medications: No medications were administered Disposition Summary: 04/11/21 11:35 Discharge Ordered Location: Home kdr Problem: new kdr Symptoms: have improved kdr Condition: Stable kdr Diagnosis - Fever, unspecified kdr - Viral infection, unspecified kdr Followup: kdr - With: Private Physician - When: 2 - 3 days - Reason: If symptoms return, Further diagnostic work-up, Recheck today's complaints, Continuance of care, Re-evaluation by your physician Discharge Instructions: - Discharge Summary Sheet kdr - Fever, Adult, [id number] kdr - Viral Illness, Adult kdr Forms: - Medication Reconciliation Form kdr - Thank You Letter kdr Signatures: Dispatcher [employer] EDMS Madhav Saleh MD MD kdr Craig Vega RN RN jl7 Roxy Tavares Corrections: (The following items were deleted from the chart) 09:42 09:19 Amylase ordered. EDCT EDMS 09:42 09:19 Basic Metabolic Panel ordered. EDMS EDMS 09:42 09:19 CBC with Automated Diff ordered. EDMS EDMS 09:42 09:19 Creatine Phosphokinase ordered. EDMS EDMS 09:42 09:19 CKMB Creatine Kinase MB ordered. EDMS EDMS 09:42 09:20 LIPASE+C.LAB.BRZ ordered. EDMS EDMS 09:43 09:19 Blood Culture ordered. EDMS EDMS 09:43 09:19 Liver (Hepatic) Function ordered. EDMS EDMS 09:43 09:19 Lactate ordered. EDMS EDMS 09:43 09:20 PCT+C.LAB.BRZ ordered. EDMS EDMS 09:43 09:20 PROTIME (+INR)+COAG.LAB.BRZ ordered. EDMS EDMS 09:43 09:20 PTT, ACTIVATED+COAG.LAB.BRZ ordered. EDMS EDMS 09:43 09:20 TROPONIN (EMERG DEPT USE ONLY)+C.LAB.BRZ ordered. EDMS EDMS 09:43 09:20 UA MICROSCOPIC+U.LAB.BRZ ordered. EDMS EDMS 09:45 09:19 O2 Sat Monitoring ordered. kdr eb 09:45 09:19 Urine Dipstick-Ancillary ordered. kdr eb 09:46 09:19 Oxygen Per Protocol ordered. kdr eb 09:48 09:19 Labs collected and sent ordered. kdr eb 09:51 09:19 Cardiac monitoring ordered. kdr eb 09:51 09:19 EKG - Nurse/Tech ordered. kdr eb 09:51 09:19 IV Saline Lock - Large Bore ordered. kdr eb 09:52 09:19 Accucheck ordered. kdr eb 10:21 09:39 CORONAVIRUS+MR.LAB.BRZ ordered. EDMS EDMS 10:21 09:39 Influenza Screen (A \T\ B)+BA.LAB.BRZ ordered. EDMS EDMS
[2021-04-11 12:01] VITALS: BP 138/83; TEMP 98.3; O2SAT 97
== END 2021-04-11 11:55 | disposition home or self-care (01) ==
LOC: ER 09:08
DX: B34.9 Viral infection, unspecified (principal); Z20.822 Contact with and (suspected) exposure to COVID-19; I10 Essential (primary) hypertension; Z95.1 Presence of aortocoronary bypass graft; Z85.3 Personal history of malignant neoplasm of breast; Z88.5 Allergy status to narcotic agent
CPT/HCPCS: 87070; 87081; 71045; 99283; U0003